=== PATIENT | female | born 1990 | race Caucasian/White ===

== ENCOUNTER 2017-01-29 11:48 | Inpatient (IN) | payer OTHER ==
[~2017-01-29] VITALS: Ht 167.6 cm; Wt 90.7 kg
[2017-01-29] MEDS ORDERED: NKM (11:57)
--- NOTE | 2017-01-29 12:33 | Emergency Room Report ---
History of Present Illness General Chief Complaint: General Complaint Source: Patient Present Illness HPI Patient presents with complaints of ongoing redness and discomfort to bilateral axilla, patient reports that she was seen previously however yesterday on antibiotics but did not improve any symptoms, patient also reports discomfort to bilateral inguinal region Denies any fevers or chills Patient has a mild fatigue denies any vomiting or diarrhea She feels areas have persisted and worsened and presents for further eval Allergies: Coded Allergies: No Known Allergies (Unverified , 01/29/17) Patient History Past Medical History: see triage record Pertinent Family History: none Now: No Reviewed Nursing Documentation: PMH: Agreed, PSxH: Agreed Nursing Documentation-PMH Hx Cardiac Problems: No - hidradenitis suppurativa Review of Systems All Other Systems: negative except mentioned in HPI Physical Exam Vital Signs Date Time Temp Pulse Resp B/P (MAP) Pulse Ox O2 Delivery O2 Flow Rate FiO2 01/29/17 11:52 97.9 74 20 116/76 99 Room Air Sp02 EP Interpretation: reviewed, normal General Appearance: well appearing, no apparent distress Head: normocephalic, atraumatic Eyes: bilateral eye PERRL, bilateral eye EOMI ENT: normal pharynx Neck: supple Respiratory: normal inspection, chest non-tender, lungs clear Cardiovascular #1: regular rate, rhythm, no edema Gastrointestinal: non tender, soft Genitourinary: no CVA tenderness Musculoskeletal: normal inspection Neurologic: alert, oriented x3, responsive Skin: other - Patient has extensive areas of what appear to be ingrown hair with increased erythema, bilateral axilla, there is also evidence bilateral inguinal region, no obvious streaking of erythema, however there is some fluctuance palpated Lymphatic: no adenopathy Medical Decision Making Diagnostic Impression: Primary Impression: Abscess Additional Impression: Cellulitis ER Course Given the patient's presentation and evaluation multiple differentials are considered The clinical exam reveals several areas of fluctuance as well At this time baseline blood work was initiated Given the appearance further antibiotic coverage has been there for 2 infectious disease specialty consultation patient does not appear acutely septic And will have close inpatient followup Labs Test 01/29/17 12:25 01/29/17 13:35 01/30/17 06:00 White Blood Count 8.0 K/UL (4.8-10.8) 8.1 K/UL (4.8-10.8) Red Blood Count 4.44 M/UL (4.20-5.40) 4.03 M/UL (4.20-5.40) Hemoglobin 9.0 G/DL (12.0-16.0) 8.5 G/DL (12.0-16.0) Hematocrit 31.0 % (37.0-47.0) 28.0 % (37.0-47.0) Mean Corpuscular Volume 70 FL (80-99) 70 FL (80-99) Mean Corpuscular Hemoglobin 20.4 PG (27.0-31.0) 21.0 PG (27.0-31.0) Mean Corpuscular Hemoglobin Concent 29.2 G/DL (32.0-36.0) 30.2 G/DL (32.0-36.0) Red Cell Distribution Width 21.6 % (11.6-14.8) 22.0 % (11.6-14.8) Platelet Count 231 K/UL (150-450) 208 K/UL (150-450) Mean Platelet Volume 10.4 FL (6.5-10.1) 8.2 FL (6.5-10.1) Neutrophils (%) (Auto) 64.6 % (45.0-75.0) 56.8 % (45.0-75.0) Lymphocytes (%) (Auto) 21.8 % (20.0-45.0) 29.7 % (20.0-45.0) Monocytes (%) (Auto) 8.3 % (1.0-10.0) 7.5 % (1.0-10.0) Eosinophils (%) (Auto) 3.9 % (0.0-3.0) 4.8 % (0.0-3.0) Basophils (%) (Auto) 1.5 % (0.0-2.0) 1.2 % (0.0-2.0) Prothrombin Time 9.9 SEC (9.30-11.50) Prothromb Time International Ratio 0.9 (0.9-1.1) Activated Partial Thromboplast Time 23 SEC (23-33) Sodium Level 140 mEQ/L (135-145) 142 mEQ/L (135-145) Potassium Level 3.4 mEQ/L (3.4-4.9) 4.0 mEQ/L (3.4-4.9) Chloride Level 104 mEQ/L (98-107) 107 mEQ/L (98-107) Carbon Dioxide Level 24 mEQ/L (20-30) 25 mEQ/L (20-30) Anion Gap 12 (5-15) 10 (5-15) Blood Urea Nitrogen 7 mg/dL (7-23) 7 mg/dL (7-23) Creatinine 0.7 mg/dL (0.5-0.9) 0.6 mg/dL (0.5-0.9) Estimat Glomerular Filtration Rate > 60 mL/min (>60) > 60 mL/min (>60) Glucose Level 33 mg/dL (74-106) 71 mg/dL (74-106) Lactic Acid Level 1.40 mmol/L (0.66-2.22) Calcium Level 9.2 mg/dL (8.6-10.2) 8.6 mg/dL (8.6-10.2) Total Bilirubin 0.3 mg/dL (0.0-1.2) Aspartate Amino Transf (AST/SGOT) 16 U/L (5-40) Alanine Aminotransferase (ALT/SGPT) 13 U/L (3-33) Alkaline Phosphatase 42 U/L (35-104) Total Creatine Kinase 44 U/L (26-140) Creatine Kinase MB < 1.5 ng/mL (< 3.8) Creatine Kinase MB Relative Index Total Protein 7.6 g/dL (6.6-8.7) Albumin 4.2 g/dL (3.5-5.2) Globulin 3.4 g/dL Albumin/Globulin Ratio 1.2 (1.0-2.7) Iron Level 18 ug/dL (37-145) Total Iron Binding Capacity 466 ug/dL (250-400) Percent Iron Saturation 4 % (15-50) Unsaturated Iron Binding 448 ug/dL (112-346) Ferritin 8 ng/mL (13-150) Rhythm Strip Diag. Results EP Interpretation: yes Rate: 77 Rhythm: NSR, no PVC's, no ectopy Last Vital Signs Date Time Temp Pulse Resp B/P (MAP) Pulse Ox O2 Delivery O2 Flow Rate FiO2 01/29/17 11:52 97.9 74 20 116/76 99 Room Air Status: improved Disposition: ADMITTED INPATIENT Condition: Serious Referrals: [facility]ERR[facility] (PCP) JULIEN KING D.O. Jan 29, 2017 12:33
[2017-01-29 12:42] LABS: BASOPHILS % (AUTO) 1.5 % (0.0-2.0); EOSINOPHILS % (AUTO) 3.9 % (0.0-3.0); LYMPHOCYTES % (AUTO) 21.8 % (20.0-45.0); MEAN CORPUSCULAR HEMOGLOBIN 20.4 PG (27.0-31.0); MEAN CORPUSCULAR HGB CONC 29.2 G/DL (32.0-36.0); MEAN CORPUSCULAR VOLUME 70 FL (80-99); MEAN PLATELET VOLUME 10.4 FL (6.5-10.1); MONOCYTES % (AUTO) 8.3 % (1.0-10.0); NEUTROPHILS % (AUTO) 64.6 % (45.0-75.0); PLATELET COUNT 231 K/UL (150-450); RED BLOOD COUNT 4.44 M/UL (4.20-5.40); RED CELL DISTRIBUTION WIDTH 21.6 % (11.6-14.8)
[2017-01-29 12:47] LABS: INR 0.9 (0.9-1.1); PROTHROMBIN TIME 9.9 SEC (9.30-11.50)
[2017-01-29 12:52] LABS: ALANINE AMINOTRANSFERASE 13 U/L (3-33); ALBUMIN/GLOBULIN RATIO 1.2 (1.0-2.7); ANION GAP 12 (5-15); ASPARTATE AMINO TRANSFERASE 16 U/L (5-40); CALCIUM 9.2 mg/dL (8.6-10.2); CARBON DIOXIDE 24 mEQ/L (20-30); CHLORIDE 104 mEQ/L (98-107); CREATININE 0.7 mg/dL (0.5-0.9); GLOMERULAR FILTRATION RATE > 60 mL/min (>60); HEMOLYSIS 1; POTASSIUM 3.4 mEQ/L (3.4-4.9); SODIUM 140 mEQ/L (135-145); TOTAL PROTEIN 7.6 g/dL (6.6-8.7)
[2017-01-29 13:24] LABS: CKMB < 1.5 ng/mL (< 3.8)
[2017-01-29 13:55] VITALS: BP 116/76
[2017-01-29 14:05] LABS: ANION GAP 10 (5-15); CALCIUM 8.6 mg/dL (8.6-10.2); CARBON DIOXIDE 25 mEQ/L (20-30); CHLORIDE 107 mEQ/L (98-107); CREATININE 0.6 mg/dL (0.5-0.9); GLOMERULAR FILTRATION RATE > 60 mL/min (>60); HEMOLYSIS 3; SODIUM 142 mEQ/L (135-145)
[2017-01-29 14:22] VITALS: BP 127/72
[2017-01-29] MEDS ORDERED: Miralax 17gm pkt ORAL PRN (14:45)
[2017-01-29] MEDS ORDERED: Morphine Sulfate 4mg/ml Inj IVP PRN (14:45)
[2017-01-29] MEDS ORDERED: Zolpidem 5mg tab ORAL PRN (14:45)
[2017-01-29] MEDS ORDERED: Milk of Magnesia 30ml Ud ORAL PRN (14:45)
[2017-01-29] MEDS ORDERED: Mylanta II UD 30ml ORAL PRN (14:45)
[2017-01-29] MEDS ORDERED: Morphine Sulfate 2mg/ml Inj IVP PRN (14:45)
[2017-01-29] MEDS: D5 1/2NS 1,000 ML IV SCH (15:45)
[2017-01-29 16:03] VITALS: BP 128/83
--- NOTE | 2017-01-29 16:42 | Diagnostic Imaging Report ---
Indication: Dyspnea Comparison: None A single view chest radiograph was obtained. Findings: Cardiomediastinal appearance is within normal limits for age. Pulmonary vascularity is appropriate. The diaphragmatic contour is smooth and costophrenic angles are sharp. No pleural effusions are identified. There is a scoliosis present convex to the right. Impression: No acute findings Scoliosis
--- NOTE | 2017-01-29 18:29 | History and Physical ---
History of Present Illness General Date patient seen: Jan 29, 2017 Time patient seen: 18:28 Reason for Hospitalization: b/l groin and axilla abscesses Present Illness HPI ongoing redness and discomfort to bilateral axilla, patient reports that she was seen previously however yesterday on antibiotics but did not improve any symptoms, patient also reports discomfort to bilateral inguinal region Denies any fevers or chills Patient has a mild fatigue denies any vomiting or diarrhea She feels areas have persisted and worsened and presents for further eval Allergies: Coded Allergies: No Known Allergies (Unverified , 01/29/17) Medication History Scheduled No Known Medications* (NKM - No Known Medications*), 0 ., (Reported) Patient History Healthcare decision maker Resuscitation status Full Code Advanced Directive on File Physical Exam Last 24 Hour Vital Signs Date Time Temp Pulse Resp B/P (MAP) Pulse Ox O2 Delivery O2 Flow Rate FiO2 01/29/17 16:03 98.4 79 20 128/83 100 Room Air 01/29/17 14:22 97.9 71 21 127/72 99 Room Air 01/29/17 13:55 97.9 20 116/76 99 Room Air 01/29/17 13:53 76 16 10/80 99 Room Air 01/29/17 11:52 97.9 74 20 116/76 99 Room Air Intake and Output 01/29/17 01/30/17 19:00 07:00 Intake Total 150 ml Balance 150 ml Intake Oral 0 ml IV Total 150 ml Laboratory Tests Test 01/29/17 12:25 01/29/17 13:35 White Blood Count 8.0 K/UL (4.8-10.8) Red Blood Count 4.44 M/UL (4.20-5.40) Hemoglobin 9.0 G/DL (12.0-16.0) L Hematocrit 31.0 % (37.0-47.0) L Mean Corpuscular Volume 70 FL (80-99) L Mean Corpuscular Hemoglobin 20.4 PG (27.0-31.0) L Mean Corpuscular Hemoglobin Concent 29.2 G/DL (32.0-36.0) L Red Cell Distribution Width 21.6 % (11.6-14.8) H Platelet Count 231 K/UL (150-450) Mean Platelet Volume 10.4 FL (6.5-10.1) H Neutrophils (%) (Auto) 64.6 % (45.0-75.0) Lymphocytes (%) (Auto) 21.8 % (20.0-45.0) Monocytes (%) (Auto) 8.3 % (1.0-10.0) Eosinophils (%) (Auto) 3.9 % (0.0-3.0) H Basophils (%) (Auto) 1.5 % (0.0-2.0) Prothrombin Time 9.9 SEC (9.30-11.50) Prothromb Time International Ratio 0.9 (0.9-1.1) Activated Partial Thromboplast Time 23 SEC (23-33) Sodium Level 140 mEQ/L (135-145) 142 mEQ/L (135-145) Potassium Level 3.4 mEQ/L (3.4-4.9) 4.0 mEQ/L (3.4-4.9) Chloride Level 104 mEQ/L (98-107) 107 mEQ/L (98-107) Carbon Dioxide Level 24 mEQ/L (20-30) 25 mEQ/L (20-30) Anion Gap 12 (5-15) 10 (5-15) Blood Urea Nitrogen 7 mg/dL (7-23) 7 mg/dL (7-23) Creatinine 0.7 mg/dL (0.5-0.9) 0.6 mg/dL (0.5-0.9) Estimat Glomerular Filtration Rate > 60 mL/min (>60) > 60 mL/min (>60) Glucose Level 33 mg/dL (74-106) *L 71 mg/dL (74-106) L Lactic Acid Level 1.40 mmol/L (0.66-2.22) Calcium Level 9.2 mg/dL (8.6-10.2) 8.6 mg/dL (8.6-10.2) Total Bilirubin 0.3 mg/dL (0.0-1.2) Aspartate Amino Transf (AST/SGOT) 16 U/L (5-40) Alanine Aminotransferase (ALT/SGPT) 13 U/L (3-33) Alkaline Phosphatase 42 U/L (35-104) Total Creatine Kinase 44 U/L (26-140) Creatine Kinase MB < 1.5 ng/mL (< 3.8) Creatine Kinase MB Relative Index Total Protein 7.6 g/dL (6.6-8.7) Albumin 4.2 g/dL (3.5-5.2) Globulin 3.4 g/dL Albumin/Globulin Ratio 1.2 (1.0-2.7) Height (Feet): 5 Height (Inches): 6.00 Weight (Pounds): 200 Medications Current Medications Medications (Trade) Dose Ordered Sig/Gonzales Route PRN Reason Start Time Stop Time Status Last Admin Dose Admin Acetaminophen (Tylenol) 650 mg Q4H PRN ORAL Mild Pain (Pain Scale 1-3) 01/29/17 14:45 02/28/17 14:44 Al Hydroxide/Mg Hydroxide (Mylanta II) 30 ml Q6H PRN ORAL dyspepsia 01/29/17 14:45 02/28/17 14:44 Dextrose (Dextrose 50%) STAT PRN IV Hypoglycemia 01/29/17 14:45 02/28/17 14:44 Dextrose/Sodium Chloride 1,000 ml @ 75 mls/hr [id number] IV 01/29/17 15:00 02/28/17 14:59 01/29/17 15:45 Diphenhydramine HCl (Benadryl) 25 mg Q6H PRN ORAL Itching/Pruritis 01/29/17 14:45 02/28/17 14:44 Docusate Sodium (Colace) 100 mg EVERY 12 HOURS ORAL 01/29/17 21:00 02/28/17 20:59 Magnesium Hydroxide (Mom) 30 ml HSPRN PRN ORAL Constipation 01/29/17 14:45 02/28/17 14:44 Morphine Sulfate (Morphine Sulfate) 2 mg Q4H PRN IVP Moderate Pain (Pain Scale 4-6) 01/29/17 14:45 02/05/17 14:44 Morphine Sulfate (Morphine Sulfate) 4 mg Q4H PRN IVP Severe Pain (Pain Scale 7-10) 01/29/17 14:45 02/05/17 14:44 Ondansetron HCl (Zofran) 4 mg Q6H PRN IVP Nausea & Vomiting 01/29/17 14:45 02/28/17 14:44 Polyethylene Glycol (Miralax) 17 gm HSPRN PRN ORAL Constipation 01/29/17 14:45 02/28/17 14:44 Zolpidem Tartrate (Ambien) 5 mg HSPRN PRN ORAL Insomnia 01/29/17 14:45 02/05/17 14:44 Assessment/Plan Problem List: (1) Abscess ICD Codes: L02.91 - Cutaneous abscess, unspecified SNOMED: 950643310 (2) Anemia ICD Codes: D64.9 - Anemia, unspecified SNOMED: 424287910 (3) Hidradenitis suppurativa ICD Codes: L73.2 - Hidradenitis suppurativa SNOMED: 67279875 Status: stable Assessment/Plan Admit in Plastic surgery consulted Check blood cultures x 2 Empiric ancef Check Fe panel, ferritin given microcytic anemia Trend CBC Type and screen Pain control, bowel regimen Supportive care If patient is required to have surgery, based on the patient's medical history, and other available ancillary data, the patient is a LOW risk for an INTERMEDIATE risk procedure. Per the most recent ACC/AHA guidelines, the patient does not need any further cardiopulmonary testing prior to the procedure and there do not appear to be any clear medical contraindications to proceeding with the proposed procedure. D/w pt, RN, surgery regarding mgmt and dispo Denis Griffin M.D. Jan 29, 2017 18:29
[2017-01-29 20:00] VITALS: BP 140/75
[2017-01-29] MEDS: Docusate 100mg cap ORAL SCH (20:29)
[2017-01-29 21:11] LABS: HEMOLYSIS 1; IRON 18 ug/dL (37-145); TOTAL IRON BINDING CAPACITY 466 ug/dL (250-400)
[2017-01-29 21:20] LABS: FERRITIN 8 ng/mL (13-150)
[2017-01-29] MEDS ORDERED: ceFAZolin 1gm in D5W 55ml IVPB ONE (23:00)
[2017-01-29] MEDS ORDERED: ceFAZolin 1gm/50ml Premix 50 ML IV ONE (23:00)
[2017-01-30] VITALS (15 sets, daily range): BP systolic 100–122; BP diastolic 40–69
[2017-01-30] MEDS: D5 1/2NS 1,000 ML IV SCH ×2 (04:02→18:30)
[2017-01-30 06:26] LABS: BASOPHILS % (AUTO) 1.2 % (0.0-2.0); EOSINOPHILS % (AUTO) 4.8 % (0.0-3.0); LYMPHOCYTES % (AUTO) 29.7 % (20.0-45.0); MEAN CORPUSCULAR HGB CONC 30.2 G/DL (32.0-36.0); MEAN CORPUSCULAR VOLUME 70 FL (80-99); MEAN PLATELET VOLUME 8.2 FL (6.5-10.1); MONOCYTES % (AUTO) 7.5 % (1.0-10.0); NEUTROPHILS % (AUTO) 56.8 % (45.0-75.0); PLATELET COUNT 208 K/UL (150-450); RED BLOOD COUNT 4.03 M/UL (4.20-5.40); WHITE BLOOD COUNT 8.1 K/UL (4.8-10.8)
[2017-01-30] MEDS: Docusate 100mg cap ORAL SCH ×2 (07:49→20:43)
[2017-01-30] MEDS ORDERED: Metoclopramide 10mg/2ml Inj IVP PRN ×2 (13:00→14:30)
[2017-01-30] MEDS ORDERED: Zolpidem 5mg tab ORAL PRN (13:00)
[2017-01-30] MEDS ORDERED: DiphenhydrAMINE 50mg/ml Inj IVP PRN ×2 (13:00→14:30)
--- NOTE | 2017-01-30 13:00 | Pre-Procedure Note/Attestation ---
Pre-Procedure Note/Attestation Complete Prior to Procedure Planned Procedure: bilateral Procedure Narrative: Bilateral groin tissue debridement and flap closure Attestation I attest that I discussed the nature of the procedure; its benefits; risks and complications; and alternatives (and the risks and benefits of such alternatives ), prior to the procedure, with the patient (or the patient's legal benefits representative). I attest that, if there was a reasonable possibility of needing a blood transfusion, the patient (or the patient's legal benefits representative) was given the [facility] standardized written summary, pursuant to the [place] Blood Safety Act ([place] Health and Safety Code # 1645, as amended). I attest that I re-evaluated the patient just prior to the surgery and that there has been no change in the patient's H&P, except as documented below: KASEY ESCOBAR Jan 30, 2017 13:00
[2017-01-30] MEDS ORDERED: NeoSporin Gu Irrig 1ml Amp IRRIG ONE (13:12)
[2017-01-30] MEDS ORDERED: Lidocaine 1% 10mg/ml/Epi 0.005mg/ml 30ml vial INJ ONE (13:12)
[2017-01-30] MEDS ORDERED: Bacitracin 50000 Units Vial ONE (13:12)
[2017-01-30] MEDS ORDERED: EPINEPHrine 1mg/1ml Amp ONE (13:12)
[2017-01-30] MEDS ORDERED: Propofol 200mg/20ml IV ONE (13:25)
--- NOTE | 2017-01-30 13:29 | General Progress Note ---
Assessment/Plan Problem List: (1) Abscess ICD Codes: L02.91 - Cutaneous abscess, unspecified SNOMED: 705346143 (2) Hidradenitis suppurativa ICD Codes: L73.2 - Hidradenitis suppurativa SNOMED: 57296939 (3) Acute blood loss anemia ICD Codes: D62 - Acute posthemorrhagic anemia SNOMED: 615488303 (4) Iron deficiency anemia ICD Codes: D50.9 - Iron deficiency anemia, unspecified SNOMED: 49543172 Status: stable Assessment/Plan Plastic surgery consulted Empiric ancef F/u blood cultures s/p radical excision of thigh tissue with flap closure on 01/31/16 Post operative recommendations include: - encourage mobilization/ambulation - encourage incentive spirometry to optimize pulmonary hygiene - DVT/GI prophylaxis as appropriate IV venofer started 01/29 for Fe def anemia Trend CBC Pain control, bowel regimen Supportive care A total of 32 min of extra time was spent in addition to normal encounter time for care/coordination and counseling. D/w pt, RN, surgery regarding mgmt and dispo Subjective Date patient seen: Jan 30, 2017 Time patient seen: 13:29 ROS Limited/Unobtainable: No Constitutional: Reports: no symptoms HEENT: Reports: no symptoms Cardiovascular: Reports: no symptoms Respiratory: Reports: no symptoms Gastrointestinal/Abdominal: Reports: no symptoms Genitourinary: Reports: no symptoms Neurologic/Psychiatric: Reports: no symptoms Endocrine: Reports: no symptoms Hematologic/Lymphatic: Reports: no symptoms Allergies: Coded Allergies: No Known Allergies (Unverified , 01/29/17) All Systems: reviewed and negative except above Subjective No acute o/n events s/p radical excision of thigh tissue with flap closure today Pain controlled. Denies f/c, n/v, d/c, chest pain, SOB Objective Last 24 Hour Vital Signs Date Time Temp Pulse Resp B/P (MAP) Pulse Ox O2 Delivery O2 Flow Rate FiO2 01/30/17 12:00 97.8 60 19 117/61 98 Room Air 01/30/17 08:00 98.0 71 19 116/60 96 Room Air 01/30/17 04:00 98.2 66 16 101/65 98 Room Air 01/30/17 00:00 97.9 61 18 100/69 99 Room Air 01/29/17 20:00 97.6 83 18 140/75 100 Room Air 01/29/17 16:03 98.4 79 20 128/83 100 Room Air 01/29/17 14:22 97.9 71 21 127/72 99 Room Air 01/29/17 13:55 97.9 20 116/76 99 Room Air 01/29/17 13:53 76 16 10/80 99 Room Air Laboratory Tests 01/29/17 13:35: Sodium Level 142, Potassium Level 4.0, Chloride Level 107, Carbon Dioxide Level 25, Anion Gap 10, Blood Urea Nitrogen 7, Creatinine 0.6, Estimat Glomerular Filtration Rate > 60, Glucose Level 71L, Calcium Level 8.6, Iron Level 18L, Total Iron Binding Capacity 466H, Percent Iron Saturation 4L, Unsaturated Iron Binding 448H, Ferritin 8L 01/30/17 06:00: White Blood Count 8.1, Red Blood Count 4.03L, Hemoglobin 8.5L, Hematocrit 28.0L , Mean Corpuscular Volume 70L, Mean Corpuscular Hemoglobin 21.0L, Mean Corpuscular Hemoglobin Concent 30.2L, Red Cell Distribution Width 22.0H, Platelet Count 208, Mean Platelet Volume 8.2, Neutrophils (%) (Auto) 56.8, Lymphocytes (%) (Auto) 29.7, Monocytes (%) (Auto) 7.5, Eosinophils (%) (Auto) 4.8H, Basophils (%) (Auto) 1.2 Height (Feet): 5 Height (Inches): 6.00 Weight (Pounds): 200 Objective General: alert, cooperative, no distress, appears stated age Head: normocephalic, without obvious abnormality, atraumatic Eyes: conjunctivae/corneas clear. PERRL, EOM's intact Throat: lips, mucosa, and tongue normal. MMM Neck: supple, symmetrical, trachea midline, and no JVD Lungs: clear to auscultation bilaterally Heart: regular rate and rhythm, S1, S2 normal, no murmur, click, rub or gallop Abdomen: soft, non-tender, non-distended, bowel sounds normal; no masses or organomegaly Extremities: extremities normal, atraumatic, no cyanosis or edema Pulses: 2+ and symmetric Skin: skin color, texture, turgor normal; no rashes or lesions Neurologic: grossly normal, no focal deficits Denis Griffin M.D. Jan 30, 2017 13:29
[2017-01-30] MEDS ORDERED: LR 1000ml ONE (13:30)
[2017-01-30] MEDS ORDERED: Midazolam 2mg/2ml Inj ONE (13:30)
[2017-01-30] MEDS ORDERED: Neostigmine 1mg/ml 10ml Inj ONE (13:30)
[2017-01-30] MEDS ORDERED: NS Irrig 1000ml ONE (13:30)
[2017-01-30] MEDS ORDERED: Glycopyrrolate 0.2mg/ml 1ml Vial ONE (13:30)
[2017-01-30] MEDS ORDERED: Zemuron 50mg/5ml Inj IV ONE (13:30)
[2017-01-30] MEDS ORDERED: fentaNYL 100 mcg/2 mL IV ONE (13:30)
[2017-01-30] MEDS ORDERED: Ketorolac 30mg Inj ONE (13:30)
[2017-01-30] MEDS ORDERED: Succinylcholine 20mg/ml 10ml vial ONE (13:30)
[2017-01-30] MEDS ORDERED: Sterile Water Irrig 1000ml IRRIG ONE (13:30)
[2017-01-30] MEDS ORDERED: Morphine Sulfate 10mg/ml Inj ONE (13:30)
[2017-01-30] MEDS ORDERED: LR 1000ml 1,000 ML IVLG SCH (14:28)
--- NOTE | 2017-01-30 14:28 | Anethesia Preoperative Eval ---
Anesthesia Pre-op PMH/ROS General Date of Evaluation: Jan 30, 2017 Time of Evaluation: 13:25 Anesthesiologist: Sandeep ASA Score: ASA 2 Mallampati Score Class I : Soft palate, uvula, fauces, pillars visible Class II: Soft palate, uvula, fauces visible Class III: Soft palate, base of uvula visible Class IV: Only hard plate visible Mallampati Classification: Class II Surgeon: Darrin Diagnosis: Bilateral groin HS Surgical Procedure: Excision and closure of bilateral groin HS Anesthesia History: none Family History: no anesthesia problems Allergies: Coded Allergies: No Known Allergies (Unverified , 01/29/17) Medications: see eMAR Past Medical History Cardiovascular: Denies: HTN, CAD, [place], valve dz, arrhythmia, other Pulmonary: Denies: asthma, COPD, THONY, other Gastrointestinal/Genitourinary: Reports: GERD, Denies: CRI, ESRD, other Neurologic/Psychiatric: Reports: depression/anxiety, Denies: dementia, CVA, TIA, other Endocrine: Denies: DM, hypothyroidism, steroids, other HEENT: Denies: cataract (L), cataract (R), glaucoma, [place] (L), [place] (R), other Hematology/Immune: Reports: anemia - mild, Denies: DVT, bleeding disorder, other Musculoskeletal/Integumentary: Denies: OA, RA, DJD, DDD, edema, other Other: obesity - s/p gastric bypass weight loss> 100# PMH Narrative: as above PSxH Narrative: Gastric bypass, hernia repair Anesthesia Pre-op Phys. Exam Physician Exam Last Vital Signs Date Time Temp Pulse Resp B/P (MAP) Pulse Ox O2 Delivery O2 Flow Rate FiO2 01/30/17 12:00 97.8 60 19 117/61 98 Room Air Constitutional: NAD Neurologic: CN 2-12 intact Cardiovascular: RRR, no M/R/G Respiratory: CTA Gastrointestinal: S/NT/ND Airway Exam Mallampati Score: Class II MO: full Neck: flexible ROM: full Teeth: intact Dentures: no upper, no lower Anesthesia Pre-op A/P Labs Hematology Test 01/30/17 06:00 White Blood Count 8.1 K/UL (4.8-10.8) Red Blood Count 4.03 M/UL (4.20-5.40) L Hemoglobin 8.5 G/DL (12.0-16.0) L Hematocrit 28.0 % (37.0-47.0) L Mean Corpuscular Volume 70 FL (80-99) L Mean Corpuscular Hemoglobin 21.0 PG (27.0-31.0) L Mean Corpuscular Hemoglobin Concent 30.2 G/DL (32.0-36.0) L Red Cell Distribution Width 22.0 % (11.6-14.8) H Platelet Count 208 K/UL (150-450) Mean Platelet Volume 8.2 FL (6.5-10.1) Neutrophils (%) (Auto) 56.8 % (45.0-75.0) Lymphocytes (%) (Auto) 29.7 % (20.0-45.0) Monocytes (%) (Auto) 7.5 % (1.0-10.0) Eosinophils (%) (Auto) 4.8 % (0.0-3.0) H Basophils (%) (Auto) 1.2 % (0.0-2.0) Studies Pre-op Studies: EKG - NSR Risk Assessment & Plan Assessment: ASA 2 Plan: GA with ETT Status Change Before Surgery: No Pre-Antibiotics Drug: Ancef 1 gr. Given Within 1 Hr of Incision: Yes Time Given: 14:16 ROSA NAQVI M.D. Jan 30, 2017 14:28
[2017-01-30] MEDS ORDERED: Midazolam 2mg/2ml Inj IVP PRN (14:30)
[2017-01-30] MEDS ORDERED: Meperidine 25mg/0.5ml Inj (FOR RIGORS ONLY) IV PRN (14:30)
[2017-01-30] MEDS ORDERED: Ketorolac 30mg Inj IV PRN (14:30)
[2017-01-30] MEDS ORDERED: Hydromorphone 0.5mg/0.5ml inj IVP PRN (14:30)
--- NOTE | 2017-01-30 14:46 | Cardiology Report ---
APPROVED REPORT EKG Measurement Heart [id number] Normal sinus rhythm with sinus arrhythmia Normal ECG
--- NOTE | 2017-01-30 15:58 | Operative Note - PDOC ---
Operative Note Operative Note Procedure: Radical excision of thigh tissue with flap closure Surgeon: Darrin Elevator Repairer Helper: Estelita Anesthesia: general Specimen: yes Complications: none Condition: stable Estimated Blood Loss: none Drains: ADITHYA Implant(s) used?: No KASEY ESCOBAR Jan 30, 2017 15:58
[2017-01-30] MEDS: PCA HYDROmorphone 1mg/ml 30 ML IV PRN (16:37)
[2017-01-30] MEDS ORDERED: PCA Education Pamphlet MISC ONE (16:45)
[2017-01-30] MEDS ORDERED: Rate Change PCA 1 Each MISC PRN (16:45)
--- NOTE | 2017-01-30 17:20 | Immediate Post-Op Evaluation ---
Immediate Post-Op Evalulation Immediate Post-Op Evalulation Procedure: Excision and closure of bilateral groin HS Date of Evaluation: Jan 30, 2017 Time of Evaluation: 16:10 IV Fluids: 1400 Blood Products: none Estimated Blood Loss: 50 Urinary Output: 500 Blood Pressure Systolic: 116 Blood Pressure Diastolic: 62 Pulse Rate: 68 Respiratory Rate: 20 O2 Sat by Pulse Oximetry: 99 Temperature (Fahrenheit): 97.6 Pain Score (1-10): 2 Nausea: No Vomiting: No Complications none Patient Status: reacts, patent, extubated, none Hydration Status: adequate ROSA NAQVI M.D. Jan 30, 2017 17:20
[2017-01-30] MEDS: PCA shift volume MISC SCH (19:18)
[2017-01-30] MEDS: Iron Sucrose 100 MG in NS 55 ML IV SCH ×3 (20:42)
[2017-01-30] MEDS: Heparin 5000 units/ml inj SUBQ SCH (20:45)
--- NOTE | 2017-01-30 21:46 | Consultation ---
DATE OF CONSULTATION: 01/30/2017 Reason For Consultation: Bilateral axillary and bilateral groin infected tissues. History Of Present Illness: This is a 26-year-old female, who presented to the emergency room with pain associated with areas of infection in her bilateral groin and axillary tissues. She was admitted by the medical team. I saw the patient on evaluation for radical excision of these areas with reconstruction. Past Medical History: Significant for morbid obesity, status post gastric bypass as well as hidradenitis. PAST SURGICAL HISTORY: Includes weight loss surgery. Medications: Include previously she is on antibiotics. Medications currently none. ALLERGIES: None. PHYSICAL EXAMINATION: GENERAL: The patient is alert and oriented x3. HEART: Regular rhythm. ABDOMEN: Soft, nontender, and nondistended. Extremities: Examination of the axilla reveals areas of chronic scarring and old abscesses with similar evidence of disease in her bilateral groin and thigh regions extending down to the mid thigh. Assessment And Plan: This is a 26-year-old female, who will require radical excision and reconstruction of her groin as well as axillary regions. This will be performed in the sequence first performing the thigh reconstruction followed by the axillary reconstruction of the second operation. Familia Clifford M.D. DR: Yarely JOB#: [id number] CC:
[2017-01-30] MEDS: ceFAZolin sod 1 GM in D5W 55 ML IVPB SCH (21:49)
--- NOTE | 2017-01-30 22:01 | Operative Note - Dictated ---
DATE OF OPERATION: 01/30/2017 PREOPERATIVE DIAGNOSIS: Bilateral infected groin and thigh tissue. POSTOPERATIVE DIAGNOSIS: Bilateral infected groin and thigh tissue. PROCEDURES: 1. Radical excision of left groin tissue. 2. Radical excision of right groin and thigh tissue. 3. Elevation of a posterior thigh flap for closure of right groin wound. 4. Elevation of anterior thigh flap for closure of left groin wound. 5. Elevation of a posterior thigh flap for closure of right groin wound. 6. Elevation of anterior thigh flap for closure of right groin wound. SURGEON: Familia Clifford M.D. ANESTHESIA: General. COMPLICATIONS: None. DRAINS: Included one ADITHYA in each wound. SPECIMEN: Included bilateral thigh tissue. DISPOSITION: Stable to the recovery room. Indications For Surgery: This is a 26-year-old female admitted for bilateral infected thigh tissue. She was admitted by the medical team to the emergency room and was on IV antibiotics and upon evaluation by me, I felt that she was an appropriate candidate for radical excision of these infected tissues followed by reconstruction with flaps. She understood the risks and benefits of surgery and agreed to proceed. Details Of The Operation: The patient was brought to the operating room and laid in the lithotomy position on the operating room table. Her bilateral thigh tissues were prepped and draped in a sterile and usual fashion. We began by using a marking pen to delineate the margins of excision of the radical excision. A #10 blade was then used to make the incision all around the marking and the specimen was radically excised all the way down to the level of the adductor fascia. This then resulted in a defect that measured 20 x 15 cm and was clearly not amenable to primary closure. As such, an anterior thigh flap based off of perforators of the superficial femoral artery was elevated with proximal and distal incisions made to fully mobilize the flap. The flap was elevated at the fasciocutaneous level and this was noted to be still insufficient for closure. As such, a posterior thigh flap based off of perforators of the femoral artery were elevated just over the level of the hamstring muscles with the proximal and distal incisions made to fully mobilize the flap as well. Once this was done, it was evident that the wound could be closed by reapproximation of the flaps. The wound was then copiously irrigated with pulse lavage. Hemostasis was achieved. A ADITHYA drain size 15 was placed and this was secured with nylon sutures and the two flaps were then brought together and inset using #0 and 2-0 Vicryl sutures and a running 3-0 Prolene was used to close the skin. This was then further reinforced with a 2-0 Prolene and Dermabond. We then turned our attention to the contralateral leg. In a similar fashion, the markings were made and a #10 blade was used to make the skin incision to radically excise it along with electrocautery all the way down to the level of the adductor fascia resulting in a defect that measured 23 x 18 cm. This was also not amenable to primary closure and in a similar fashion, an anterior thigh flap based off of perforators of the superficial femoral artery was elevated with the proximal and distal incisions made to fully mobilize the flap at the fasciocutaneous level and a posterior thigh flap was elevated just off of the hamstring fascia with proximal and distal incisions made to fully mobilize this flap and it was noted that at this point, the flaps were brought together without tension. Hemostasis was achieved. After irrigation of the wound, a ADITHYA drain was placed size 15. This was secured in place with a nylon stitch and the two flaps were brought together using #0 and 2-0 Vicryl sutures and a running 3-0 Prolene baseball stitch was used to close the skin reinforced with 2-0 Prolene and Dermabond. Compressive dressings were applied. The patient tolerated the procedure well. There were no complications. Familia Clifford M.D. DR: CRISTINO JOB#: [id number] CC:
[2017-01-31] VITALS: BP 105/56
[2017-01-31 04:00] VITALS: BP 108/58
[2017-01-31] MEDS: ceFAZolin sod 1 GM in D5W 55 ML IVPB SCH ×3 (05:35→22:15)
[2017-01-31] MEDS: D5 1/2NS 1,000 ML IV SCH ×2 (05:39→20:47)
[2017-01-31 07:11] LABS: BASOPHILS % (AUTO) 0.7 % (0.0-2.0); EOSINOPHILS % (AUTO) 1.6 % (0.0-3.0); LYMPHOCYTES % (AUTO) 11.3 % (20.0-45.0); MEAN CORPUSCULAR HGB CONC 29.7 G/DL (32.0-36.0); MEAN CORPUSCULAR VOLUME 70 FL (80-99); MEAN PLATELET VOLUME 10.7 FL (6.5-10.1); MONOCYTES % (AUTO) 6.1 % (1.0-10.0); NEUTROPHILS % (AUTO) 80.3 % (45.0-75.0); PLATELET COUNT 208 K/UL (150-450); RED BLOOD COUNT 3.87 M/UL (4.20-5.40); RED CELL DISTRIBUTION WIDTH 22.6 % (11.6-14.8); WHITE BLOOD COUNT 10.9 K/UL (4.8-10.8)
[2017-01-31] MEDS: PCA shift volume MISC SCH ×2 (07:26→19:10)
[2017-01-31 07:35] LABS: ANION GAP 9 (5-15); CALCIUM 8.4 mg/dL (8.6-10.2); CARBON DIOXIDE 26 mEQ/L (20-30); CHLORIDE 101 mEQ/L (98-107); CREATININE 0.5 mg/dL (0.5-0.9); GLOMERULAR FILTRATION RATE > 60 mL/min (>60); HEMOLYSIS 0; POTASSIUM 3.8 mEQ/L (3.4-4.9); SODIUM 136 mEQ/L (135-145)
[2017-01-31 08:22] VITALS: BP 105/54
[2017-01-31] MEDS: Docusate 100mg cap ORAL SCH ×2 (08:47→20:47)
[2017-01-31] MEDS: Heparin 5000 units/ml inj SUBQ SCH ×2 (08:52→20:51)
--- NOTE | 2017-01-31 11:06 | General Progress Note ---
Progress Note Progress Note Pt seen and examined. POD # 1 from closure of groin wounds. Doing well. AVSS Needs cavanaugh to prevent wound contamination. Plan for OR in AM for axillary reconstruction. MD SHAWN Babb AMIR Jan 31, 2017 11:06
[2017-01-31 11:29] VITALS: BP 110/65
--- NOTE | 2017-01-31 14:45 | General Progress Note ---
Assessment/Plan Problem List: (1) Abscess ICD Codes: L02.91 - Cutaneous abscess, unspecified SNOMED: 171806035 (2) Hidradenitis suppurativa ICD Codes: L73.2 - Hidradenitis suppurativa SNOMED: 93455379 (3) Acute blood loss anemia ICD Codes: D62 - Acute posthemorrhagic anemia SNOMED: 104722986 (4) Iron deficiency anemia ICD Codes: D50.9 - Iron deficiency anemia, unspecified SNOMED: 93819473 Status: stable Assessment/Plan Plastic surgery consulted Empiric ancef F/u blood cultures s/p radical excision of thigh tissue with flap closure on 01/31/16 Post operative recommendations include: - encourage mobilization/ambulation - encourage incentive spirometry to optimize pulmonary hygiene - DVT/GI prophylaxis as appropriate--SCD, HSQ IV venofer x 10 doses for Fe def anemia Trend CBC Pain control, bowel regimen Supportive care A total of 31 min of extra time was spent in addition to normal encounter time for care/coordination and counseling. D/w pt, RN, surgery regarding mgmt and dispo Subjective Date patient seen: Jan 30, 2017 Time patient seen: 14:00 ROS Limited/Unobtainable: No Constitutional: Reports: no symptoms HEENT: Reports: no symptoms Cardiovascular: Reports: no symptoms Respiratory: Reports: no symptoms Gastrointestinal/Abdominal: Reports: no symptoms Genitourinary: Reports: no symptoms Neurologic/Psychiatric: Reports: no symptoms Endocrine: Reports: no symptoms Hematologic/Lymphatic: Reports: no symptoms Allergies: Coded Allergies: No Known Allergies (Unverified , 01/29/17) All Systems: reviewed and negative except above Subjective No acute o/n events s/p radical excision of thigh tissue with flap closure yesterday POD#1 Pain controlled. Denies f/c, n/v, d/c, chest pain, SOB Objective Last 24 Hour Vital Signs Date Time Temp Pulse Resp B/P (MAP) Pulse Ox O2 Delivery O2 Flow Rate FiO2 01/31/17 13:54 97.8 01/31/17 12:00 20 01/31/17 11:29 97.8 81 20 110/65 99 Room Air 01/31/17 08:22 98.6 66 20 105/54 94 Room Air 01/31/17 08:00 18 01/31/17 04:00 18 01/31/17 04:00 97.4 64 18 108/58 97 Nasal Cannula 2.0 01/31/17 00:00 97.8 55 16 105/56 97 Nasal Cannula 2.0 01/31/17 00:00 19 01/30/17 20:00 97.8 61 18 111/68 99 Nasal Cannula 2.0 01/30/17 20:00 18 01/30/17 19:58 Nasal Cannula 2.0 28 01/30/17 19:58 99 Nasal Cannula 2.0 28 01/30/17 18:30 98.1 57 19 112/68 100 Nasal Cannula 3.0 01/30/17 18:15 19 01/30/17 18:00 97.8 55 19 101/54 98 Nasal Cannula 3.0 01/30/17 17:45 19 01/30/17 17:30 97.7 54 19 103/58 96 Nasal Cannula 3.0 01/30/17 17:20 68 20 99 01/30/17 17:15 14 01/30/17 17:00 13 01/30/17 17:00 97.6 01/30/17 17:00 97.6 01/30/17 17:00 98.8 55 13 104/61 99 Nasal Cannula 3.0 01/30/17 16:47 60 14 106/60 99 Nasal Cannula 3.0 01/30/17 16:45 14 01/30/17 16:40 55 14 120/40 100 Nasal Cannula 3.0 01/30/17 16:37 14 01/30/17 16:25 57 15 109/61 100 Nasal Cannula 3.0 01/30/17 16:15 57 15 112/63 100 Simple Mask 6.0 01/30/17 16:10 61 21 122/60 100 Simple Mask 6.0 01/30/17 16:05 98.6 55 14 113/57 100 Simple Mask 6.0 Intake and Output 01/31/17 02/01/17 19:00 07:00 Intake Total 1045 ml Output Total 800 ml Balance 245 ml Intake Oral 520 ml IV Total 525 ml Output Urine Total 800 ml # Voids 1 Laboratory Tests 01/31/17 06:00: White Blood Count 10.9H, Red Blood Count 3.87L, Hemoglobin 8.1L, Hematocrit 27.3L, Mean Corpuscular Volume 70L, Mean Corpuscular Hemoglobin 21.0L, Mean Corpuscular Hemoglobin Concent 29.7L, Red Cell Distribution Width 22.6H, Platelet Count 208, Mean Platelet Volume 10.7H, Neutrophils (%) (Auto) 80.3H, Lymphocytes (%) (Auto) 11.3L, Monocytes (%) (Auto) 6.1, Eosinophils (%) (Auto) 1.6, Basophils (%) (Auto) 0.7, Sodium Level 136, Potassium Level 3.8, Chloride Level 101, Carbon Dioxide Level 26, Anion Gap 9, Blood Urea Nitrogen 5L, Creatinine 0.5, Estimat Glomerular Filtration Rate > 60, Glucose Level 88, Calcium Level 8.4L Height (Feet): 5 Height (Inches): 6.00 Weight (Pounds): 200 Objective General: alert, cooperative, no distress, appears stated age Head: normocephalic, without obvious abnormality, atraumatic Eyes: conjunctivae/corneas clear. PERRL, EOM's intact Throat: lips, mucosa, and tongue normal. MMM Neck: supple, symmetrical, trachea midline, and no JVD Lungs: clear to auscultation bilaterally Heart: regular rate and rhythm, S1, S2 normal, no murmur, click, rub or gallop Abdomen: soft, non-tender, non-distended, bowel sounds normal; no masses or organomegaly Extremities: extremities normal, atraumatic, no cyanosis or edema Pulses: 2+ and symmetric Skin: skin color, texture, turgor normal; no rashes or lesions Neurologic: grossly normal, no focal deficits Denis Griffin M.D. Jan 31, 2017 14:45
[2017-01-31 16:21] VITALS: BP 111/57
[2017-01-31] MEDS: PCA HYDROmorphone 1mg/ml 30 ML IV PRN (17:20)
[2017-01-31 20:11] VITALS: BP 111/63
[2017-01-31] MEDS: Iron Sucrose 100 MG in NS 55 ML IV SCH (20:47)
[2017-02-01] VITALS (14 sets, daily range): BP systolic 110–136; BP diastolic 50–69
[2017-02-01] MEDS: ceFAZolin sod 1 GM in D5W 55 ML IVPB SCH ×3 (05:23→22:02)
[2017-02-01 06:54] LABS: BASOPHILS % (AUTO) 0.8 % (0.0-2.0); EOSINOPHILS % (AUTO) 1.7 % (0.0-3.0); LYMPHOCYTES % (AUTO) 13.8 % (20.0-45.0); MEAN CORPUSCULAR HEMOGLOBIN 21.3 PG (27.0-31.0); MEAN CORPUSCULAR HGB CONC 30.3 G/DL (32.0-36.0); MEAN CORPUSCULAR VOLUME 70 FL (80-99); MEAN PLATELET VOLUME 9.3 FL (6.5-10.1); MONOCYTES % (AUTO) 8.4 % (1.0-10.0); NEUTROPHILS % (AUTO) 75.3 % (45.0-75.0); PLATELET COUNT 219 K/UL (150-450); RED BLOOD COUNT 3.95 M/UL (4.20-5.40); RED CELL DISTRIBUTION WIDTH 22.4 % (11.6-14.8); WHITE BLOOD COUNT 9.5 K/UL (4.8-10.8)
[2017-02-01] MEDS: PCA shift volume MISC SCH ×2 (07:00→19:16)
--- NOTE | 2017-02-01 08:17 | Pre-Procedure Note/Attestation ---
Pre-Procedure Note/Attestation Complete Prior to Procedure Planned Procedure: bilateral Procedure Narrative: Bilateral axillary tissue excision with flap closure Attestation I attest that I discussed the nature of the procedure; its benefits; risks and complications; and alternatives (and the risks and benefits of such alternatives ), prior to the procedure, with the patient (or the patient's legal delivery representative). I attest that, if there was a reasonable possibility of needing a blood transfusion, the patient (or the patient's legal delivery representative) was given the [facility] standardized written summary, pursuant to the [place] Blood Safety Act ([place] Health and Safety Code # 1645, as amended). I attest that I re-evaluated the patient just prior to the surgery and that there has been no change in the patient's H&P, except as documented below: KASEY ESCOBAR Feb 01, 2017 08:17
[2017-02-01] MEDS ORDERED: PCA HYDROmorphone 1mg/ml 30 ML IV PRN (08:30)
[2017-02-01] MEDS ORDERED: Rate Change PCA 1 Each MISC PRN ×2 (08:30→12:00)
[2017-02-01] MEDS ORDERED: PCA Education Pamphlet MISC ONE ×2 (08:30→10:15)
[2017-02-01] MEDS ORDERED: Bacitracin 50000 Units Vial ONE (08:31)
[2017-02-01] MEDS ORDERED: NeoSporin Gu Irrig 1ml Amp IRRIG ONE (08:31)
[2017-02-01] MEDS ORDERED: Lidocaine 1% 10mg/ml/Epi 0.005mg/ml 30ml vial INJ ONE (08:31)
[2017-02-01] MEDS ORDERED: Morphine Sulfate 10mg/ml Inj ONE (09:00)
[2017-02-01] MEDS ORDERED: Propofol 200mg/20ml IV ONE (09:00)
[2017-02-01] MEDS ORDERED: LR 1000ml ONE (09:00)
[2017-02-01] MEDS ORDERED: Lidocaine 1% MPF 10mg/ml 5ml ONE (09:00)
[2017-02-01] MEDS: Heparin 5000 units/ml inj SUBQ SCH ×2 (09:00→20:34)
[2017-02-01] MEDS ORDERED: Ketorolac 30mg Inj ONE (09:00)
[2017-02-01] MEDS ORDERED: Midazolam 2mg/2ml Inj ONE (09:00)
[2017-02-01] MEDS ORDERED: fentaNYL 100 mcg/2 mL IV ONE (09:00)
[2017-02-01] MEDS: Docusate 100mg cap ORAL SCH ×2 (09:00→17:07)
[2017-02-01] MEDS ORDERED: Sterile Water Irrig 1000ml IRRIG ONE (09:00)
[2017-02-01] MEDS ORDERED: NS Irrig 1000ml ONE (09:00)
[2017-02-01] MEDS: D5 1/2NS 1,000 ML IV SCH ×2 (09:13→23:00)
[2017-02-01] MEDS ORDERED: Surgicel 4in x 8in TOPIC ONE (09:29)
--- NOTE | 2017-02-01 09:47 | 48 Hour Post Anesthesia Eval ---
Post Anesthesia Evaluation Procedure: Excision and closure of bilateral groin HS Date of Evaluation: Jan 31, 2017 Time of Evaluation: 11:32 Blood Pressure Systolic: 116 0: 62 Pulse Rate: 74 Respiratory Rate: 20 Temperature (Fahrenheit): 97.6 O2 Sat by Pulse Oximetry: 98 Airway: patent Nausea: No Vomiting: No Pain Intensity: 3 Hydration Status: adequate Cardiopulmonary Status: stable Mental Status/LOC: patient returned to baseline Follow-up Care/Observations: n/a Post-Anesthesia Complications: none Follow-up care needed: N/A ROSA NAQVI M.D. Feb 01, 2017 09:47
--- NOTE | 2017-02-01 09:53 | Anethesia Preoperative Eval ---
Anesthesia Pre-op PMH/ROS General Date of Evaluation: Feb 01, 2017 Time of Evaluation: 08:52 Anesthesiologist: Sandeep ASA Score: ASA 2 Mallampati Score Class I : Soft palate, uvula, fauces, pillars visible Class II: Soft palate, uvula, fauces visible Class III: Soft palate, base of uvula visible Class IV: Only hard plate visible Mallampati Classification: Class II Surgeon: Darrin Diagnosis: Recurent HS Surgical Procedure: Excision and closure of bilateral axillary HS Anesthesia History: none Family History: no anesthesia problems Allergies: Coded Allergies: No Known Allergies (Unverified , 01/29/17) Medications: see eMAR Past Medical History Cardiovascular: Denies: HTN, CAD, DE, valve dz, arrhythmia, other Pulmonary: Denies: asthma, COPD, THONY, other Gastrointestinal/Genitourinary: Reports: GERD, Denies: CRI, ESRD, other Neurologic/Psychiatric: Reports: depression/anxiety, Denies: dementia, CVA, TIA, other Endocrine: Denies: DM, hypothyroidism, steroids, other HEENT: Denies: cataract (L), cataract (R), glaucoma, LUMMI (L), LUMMI (R), other Hematology/Immune: Reports: anemia, Denies: DVT, bleeding disorder, other Musculoskeletal/Integumentary: Reports: other - Recurrent HS Other: obesity - s/p gastric bypass PMH Narrative: as above PSxH Narrative: see H&P Anesthesia Pre-op Phys. Exam Physician Exam Last Vital Signs Date Time Temp Pulse Resp B/P (MAP) Pulse Ox O2 Delivery O2 Flow Rate FiO2 02/01/17 08:00 99.2 75 17 110/58 96 Room Air 01/31/17 04:00 2.0 01/30/17 19:58 28 Constitutional: NAD Neurologic: CN 2-12 intact Cardiovascular: RRR, no M/R/G Respiratory: CTA Gastrointestinal: S/NT/ND Airway Exam Mallampati Score: Class II MO: full Neck: flexible ROM: full Teeth: intact Dentures: no upper, no lower Anesthesia Pre-op A/P Labs Hematology Test 02/01/17 05:20 White Blood Count 9.5 K/UL (4.8-10.8) Red Blood Count 3.95 M/UL (4.20-5.40) L Hemoglobin 8.4 G/DL (12.0-16.0) L Hematocrit 27.7 % (37.0-47.0) L Mean Corpuscular Volume 70 FL (80-99) L Mean Corpuscular Hemoglobin 21.3 PG (27.0-31.0) L Mean Corpuscular Hemoglobin Concent 30.3 G/DL (32.0-36.0) L Red Cell Distribution Width 22.4 % (11.6-14.8) H Platelet Count 219 K/UL (150-450) Mean Platelet Volume 9.3 FL (6.5-10.1) Neutrophils (%) (Auto) 75.3 % (45.0-75.0) H Lymphocytes (%) (Auto) 13.8 % (20.0-45.0) L Monocytes (%) (Auto) 8.4 % (1.0-10.0) Eosinophils (%) (Auto) 1.7 % (0.0-3.0) Basophils (%) (Auto) 0.8 % (0.0-2.0) Risk Assessment & Plan Assessment: ASA 2 Plan: GA with LMA PONV prevention Status Change Before Surgery: No Pre-Antibiotics Drug: Ancef 1gr. Given Within 1 Hr of Incision: Yes Time Given: 09:35 ROSA NAQVI M.D. Feb 01, 2017 09:53
[2017-02-01] MEDS ORDERED: Metoclopramide 10mg/2ml Inj IVP PRN (10:00)
[2017-02-01] MEDS ORDERED: Midazolam 2mg/2ml Inj IVP PRN (10:00)
[2017-02-01] MEDS ORDERED: Meperidine 25mg/0.5ml Inj (FOR RIGORS ONLY) IV PRN (10:00)
[2017-02-01] MEDS ORDERED: Hydromorphone 0.5mg/0.5ml inj IVP PRN (10:00)
[2017-02-01] MEDS ORDERED: DiphenhydrAMINE 50mg/ml Inj IVP PRN ×2 (10:00→12:00)
[2017-02-01] MEDS ORDERED: Ketorolac 30mg Inj IV PRN (10:00)
--- NOTE | 2017-02-01 11:01 | Operative Note - PDOC ---
Operative Note Operative Note Pre-op Diagnosis: Bilateral axillary tissue infection Procedure: Radical excision of bilateral axillary tissue with flap reconstruction- Post-op Diagnosis: same as pre-op Surgeon: Darrin Art Director: Mp Anesthesia: general Specimen: yes Complications: none Condition: stable Estimated Blood Loss: minimal Drains: ADITHYA Implant(s) used?: No KASEY ESCOBAR Feb 01, 2017 11:01
--- NOTE | 2017-02-01 11:16 | Immediate Post-Op Evaluation ---
Immediate Post-Op Evalulation Immediate Post-Op Evalulation Procedure: excision and closure of bilateral axillary wounds Date of Evaluation: Feb 01, 2017 Time of Evaluation: 11:14 IV Fluids: 1200 Blood Products: none Estimated Blood Loss: 50 Urinary Output: 500 Blood Pressure Systolic: 125 Blood Pressure Diastolic: 80 Pulse Rate: 79 Respiratory Rate: 20 O2 Sat by Pulse Oximetry: 99 Temperature (Fahrenheit): 97.4 Pain Score (1-10): 2 Nausea: No Vomiting: No Complications none Patient Status: awake, patent, none Hydration Status: adequate ROSA NAQVI M.D. Feb 01, 2017 11:16
[2017-02-01] MEDS ORDERED: LR 1000ml 1,000 ML IVLG SCH (11:30)
[2017-02-01] MEDS ORDERED: LORazepam 1mg tab ORAL PRN (12:00)
[2017-02-01] MEDS ORDERED: Naloxone 0.4mg/ml Inj IVP PRN (12:00)
[2017-02-01] MEDS: PCA HYDROmorphone 1mg/ml 30 ML IV PRN (12:06)
--- NOTE | 2017-02-01 14:43 | General Progress Note ---
Assessment/Plan Problem List: (1) Abscess ICD Codes: L02.91 - Cutaneous abscess, unspecified SNOMED: 840869416 (2) Hidradenitis suppurativa ICD Codes: L73.2 - Hidradenitis suppurativa SNOMED: 04657805 (3) Acute blood loss anemia ICD Codes: D62 - Acute posthemorrhagic anemia SNOMED: 211435828 (4) Iron deficiency anemia ICD Codes: D50.9 - Iron deficiency anemia, unspecified SNOMED: 72442028 Status: stable Assessment/Plan Plastic surgery consulted Empiric ancef F/u blood cultures s/p radical excision of thigh tissue with flap closure on 01/31/16 s/p radical excision of bilateral axillary tissue with flap reconstruction on Post operative recommendations include: - encourage mobilization/ambulation - encourage incentive spirometry to optimize pulmonary hygiene - DVT/GI prophylaxis as appropriate--SCD, HSQ IV venofer x 10 doses for Fe def anemia Trend CBC Pain control, bowel regimen Supportive care A total of 31 min of extra time was spent in addition to normal encounter time for care/coordination and counseling. D/w pt, RN, surgery regarding mgmt and dispo Subjective Date patient seen: Feb 01, 2017 Time patient seen: 14:42 ROS Limited/Unobtainable: No Constitutional: Reports: no symptoms HEENT: Reports: no symptoms Cardiovascular: Reports: no symptoms Respiratory: Reports: no symptoms Gastrointestinal/Abdominal: Reports: no symptoms Genitourinary: Reports: no symptoms Neurologic/Psychiatric: Reports: no symptoms Endocrine: Reports: no symptoms Hematologic/Lymphatic: Reports: no symptoms Allergies: Coded Allergies: No Known Allergies (Unverified , 01/29/17) All Systems: reviewed and negative except above Subjective No acute o/n events s/p radical excision of thigh tissue with flap closure POD#2 s/p radical excision of bilateral axillary tissue with flap reconstruction today Pain controlled. Denies f/c, n/v, d/c, chest pain, SOB Objective Last 24 Hour Vital Signs Date Time Temp Pulse Resp B/P (MAP) Pulse Ox O2 Delivery O2 Flow Rate FiO2 02/01/17 13:30 18 02/01/17 13:00 16 02/01/17 12:45 16 02/01/17 12:45 97.6 70 16 125/62 96 Nasal Cannula 3.0 02/01/17 12:42 97.6 02/01/17 12:40 97.9 80 18 111/54 96 Nasal Cannula 3.0 02/01/17 12:30 71 18 115/50 95 Nasal Cannula 3.0 02/01/17 12:25 17 02/01/17 12:15 76 15 121/52 98 Nasal Cannula 3.0 02/01/17 12:10 18 02/01/17 12:00 73 17 119/50 95 Nasal Cannula 3.0 02/01/17 11:45 77 13 125/53 96 Nasal Cannula 3.0 02/01/17 11:30 71 16 123/54 98 Nasal Cannula 3.0 02/01/17 11:16 79 20 99 02/01/17 11:15 81 14 122/64 100 Simple Mask 6.0 02/01/17 11:08 97.8 72 20 136/62 100 Simple Mask 6.0 02/01/17 09:47 74 20 98 02/01/17 08:00 99.2 75 17 110/58 96 Room Air 02/01/17 08:00 20 02/01/17 04:27 98.2 89 18 120/68 97 Room Air 02/01/17 04:00 18 02/01/17 00:14 98.8 101 20 115/69 95 Room Air 02/01/17 00:00 18 01/31/17 20:11 98.3 83 19 111/63 96 Room Air 01/31/17 20:00 18 01/31/17 17:50 99.5 01/31/17 17:45 18 01/31/17 16:21 99.5 86 20 111/57 100 Room Air 01/31/17 16:00 20 Laboratory Tests 02/01/17 05:20: White Blood Count 9.5, Red Blood Count 3.95L, Hemoglobin 8.4L, Hematocrit 27.7L , Mean Corpuscular Volume 70L, Mean Corpuscular Hemoglobin 21.3L, Mean Corpuscular Hemoglobin Concent 30.3L, Red Cell Distribution Width 22.4H, Platelet Count 219, Mean Platelet Volume 9.3, Neutrophils (%) (Auto) 75.3H, Lymphocytes (%) (Auto) 13.8L, Monocytes (%) (Auto) 8.4, Eosinophils (%) (Auto) 1.7, Basophils (%) (Auto) 0.8 Height (Feet): 5 Height (Inches): 6.00 Weight (Pounds): 200 Objective General: alert, cooperative, no distress, appears stated age Head: normocephalic, without obvious abnormality, atraumatic Eyes: conjunctivae/corneas clear. PERRL, EOM's intact Throat: lips, mucosa, and tongue normal. MMM Neck: supple, symmetrical, trachea midline, and no JVD Lungs: clear to auscultation bilaterally Heart: regular rate and rhythm, S1, S2 normal, no murmur, click, rub or gallop Abdomen: soft, non-tender, non-distended, bowel sounds normal; no masses or organomegaly Extremities: extremities normal, atraumatic, no cyanosis or edema Pulses: 2+ and symmetric Skin: skin color, texture, turgor normal; no rashes or lesions Neurologic: grossly normal, no focal deficits Denis Griffin M.D. Feb 01, 2017 14:43
[2017-02-01] MEDS ORDERED: Tubing IV Secondary IV ONE (18:49)
[2017-02-01] MEDS ORDERED: D5 1/2NS 1000ml IV ONE (18:49)
[2017-02-01] MEDS ORDERED: PCA shift volume MISC SCH (19:00)
[2017-02-01] MEDS ORDERED: DiphenhydrAMINE 50mg/ml Inj IVP ONE (20:15)
[2017-02-01] MEDS: Iron Sucrose 100 MG in NS 55 ML IV SCH (20:32)
--- NOTE | 2017-02-01 22:30 | Operative Note - Dictated ---
DATE OF OPERATION: 02/01/2017 PREOPERATIVE DIAGNOSIS: Bilateral axillary infected tissue. POSTOPERATIVE DIAGNOSIS: Bilateral axillary infected tissue. PROCEDURES: 1. Radical excision of right axillary tissue. 2. Elevation of anterior chest wall flap for closure of right axillary wound. 3. Elevation of right medial arm flap for closure of right axillary wound. 4. Radical excision of left axillary tissue. 5. Elevation of the anterior left-sided chest wall flap for closure of left axillary wound. 6. Elevation of the left medial arm flap for closure of axillary wound. SURGEON: Familia Clifford M.D. CORPORATE FINANCIAL ANALYST: Irene Gresham M.D. ANESTHESIA: General. COMPLICATIONS: None. DRAINS: Included one ADITHYA in each axilla. DISPOSITION: Stable to the recovery room. Indications For Surgery: This is a 26-year-old female, who presented with bilateral axillary infected tissue recently underwent bilateral groin reconstruction for the similar type of infection and has done well from the groin reconstruction and now presents for axillary excision and reconstruction. She understands the risks and benefits of surgery and agrees to proceed. Details Of The Operation: The patient was brought to the operating room and laid in the supine position on the operating room table. Her bilateral axilla and chest were prepped and draped in a sterile and usual fashion. We first began by marking out the areas of disease in both axillae and then began on the right side. A marking pen was used to reinforce the puckett that were made preoperatively. A #10 blade was then used to make the axillary incision and electrocautery was used to radically excised the tissue sparing the infection all way down to the level of the axillary fascia. The defect that resulted measured 12 x 10 cm and was not amenable to primary closure. As such, flaps had to be elevated to allow for definitive closure of this wound. First an anterior chest wall flap was elevated just above the level of the pectoral fascia muscle with proximal and distal incisions made to fully mobilize the flap with perforators of the thoracoacromial artery perfusing tissue flap and then we noted that this was not sufficient to close the wound. As such, puckett were made for a medial arm flap based off of perforators of the brachial artery. The incision was extended down to approximately 5 to 8 cm proximal to the elbow with the incision made and the flap was fully mobilized and then was able to be inset along with the lateral anterior chest wall flap to close the wound. Prior to closure of the wound, a ADITHYA drain was placed. Hemostasis was achieved and irrigation was performed and the flaps were then brought together and closure of the donor sites on the arm was achieved using #0 and 2-0 Vicryl sutures and a running 3-0 Prolene with interrupted 2-0 Prolene was used to close the skin. In a similar fashion, the contralateral side was addressed by using a #10 blade to make the skin incision around the left axillary tissue and electrocautery was then further implemented to perform the radical excision all the way down to the level of the axillary fascia. The defect that resulted on this side was 14 x 15 cm and again was not amenable to primary closure. As such, flap had to be elevated again on this side. An anterior chest wall flap based off of perforators of the thoracoacromial artery was elevated above the level of the pectoralis fascia. The pectoralis major fascia with proximal and distal incisions made to fully mobilize the flap in a similar fashion because this flap was not enough to close the wound, a medial arm flap based off of perforators of the brachial artery was also elevated just above the brachial fascia, a back cut incision performed all the way up to the level approximately 8 cm proximal to the elbow. At this point, the flap could be fully mobilized and brought into the defect and approximated to the chest wall flap that had been elevated. The wound was copiously irrigated with pulse lavage. A ADITHYA drain size #15 was placed. Hemostasis was achieved and the flaps were brought together using #0 and 2-0 Vicryl sutures. The brachial arm flap at donor site was closed with #0 and 2-0 Vicryl sutures and the skin for all the wounds was closed with a running 3-0 Prolene suture continuous with interrupted 2-0 Prolene on top and ADITHYA drains were secured in place with 3-0 nylon sutures. The patient tolerated the procedure well. Dressings were applied. There was no complications. Familia Clifford M.D. DR: KAREEM JOB#: [id number] CC:
[2017-02-02] VITALS: BP 115/62
[2017-02-02 04:00] VITALS: BP 111/60
[2017-02-02] MEDS: ceFAZolin sod 1 GM in D5W 55 ML IVPB SCH ×3 (05:42→22:11)
[2017-02-02] MEDS: PCA shift volume MISC SCH ×2 (07:00→19:00)
[2017-02-02 08:00] VITALS: BP 107/53
[2017-02-02 08:13] LABS: BASOPHILS % (AUTO) 0.6 % (0.0-2.0); EOSINOPHILS % (AUTO) 1.6 % (0.0-3.0); LYMPHOCYTES % (AUTO) 9.9 % (20.0-45.0); MEAN CORPUSCULAR HGB CONC 29.5 G/DL (32.0-36.0); MEAN CORPUSCULAR VOLUME 71 FL (80-99); MEAN PLATELET VOLUME 9.3 FL (6.5-10.1); MONOCYTES % (AUTO) 7.2 % (1.0-10.0); NEUTROPHILS % (AUTO) 80.6 % (45.0-75.0); PLATELET COUNT 226 K/UL (150-450); RED BLOOD COUNT 3.81 M/UL (4.20-5.40); RED CELL DISTRIBUTION WIDTH 22.2 % (11.6-14.8); WHITE BLOOD COUNT 9.7 K/UL (4.8-10.8)
[2017-02-02] MEDS: Docusate 100mg cap ORAL SCH ×2 (09:22→17:58)
[2017-02-02] MEDS: Heparin 5000 units/ml inj SUBQ SCH ×2 (09:23→22:13)
--- NOTE | 2017-02-02 10:58 | 48 Hour Post Anesthesia Eval ---
Post Anesthesia Evaluation Procedure: excision and closure of bilateral axillary wounds Date of Evaluation: Feb 02, 2017 Time of Evaluation: 10:57 Blood Pressure Systolic: 117 0: 56 Pulse Rate: 76 Respiratory Rate: 20 Temperature (Fahrenheit): 98.1 O2 Sat by Pulse Oximetry: 98 Airway: patent Nausea: No Vomiting: No Pain Intensity: 3 Hydration Status: adequate Cardiopulmonary Status: stable Mental Status/LOC: patient returned to baseline Follow-up Care/Observations: n/a Post-Anesthesia Complications: none Follow-up care needed: N/A ROSA NAQVI M.D. Feb 02, 2017 10:58
[2017-02-02 11:46] VITALS: BP 108/65
[2017-02-02] MEDS: PCA HYDROmorphone 1mg/ml 30 ML IV PRN (12:20)
[2017-02-02] MEDS: D5 1/2NS 1,000 ML IV SCH (12:48)
--- NOTE | 2017-02-02 13:26 | General Progress Note ---
Assessment/Plan Problem List: (1) Abscess ICD Codes: L02.91 - Cutaneous abscess, unspecified SNOMED: 936085609 (2) Hidradenitis suppurativa ICD Codes: L73.2 - Hidradenitis suppurativa SNOMED: 91072019 (3) Acute blood loss anemia ICD Codes: D62 - Acute posthemorrhagic anemia SNOMED: 090236408 (4) Iron deficiency anemia ICD Codes: D50.9 - Iron deficiency anemia, unspecified SNOMED: 04840291 Status: stable Assessment/Plan Plastic surgery consulted Empiric ancef F/u blood cultures s/p radical excision of thigh tissue with flap closure on 01/31/16 s/p radical excision of bilateral axillary tissue with flap reconstruction on Post operative recommendations include: - encourage mobilization/ambulation - encourage incentive spirometry to optimize pulmonary hygiene - DVT/GI prophylaxis as appropriate--SCD, HSQ IV venofer x 10 doses for Fe def anemia Trend CBC Pain control, bowel regimen Supportive care A total of 31 min of extra time was spent in addition to normal encounter time for care/coordination and counseling. D/w pt, RN, surgery regarding mgmt and dispo. Hgb slightly downtrending, will cont to monitor per surgery. Subjective Date patient seen: Feb 02, 2017 Time patient seen: 13:25 ROS Limited/Unobtainable: No Constitutional: Reports: no symptoms HEENT: Reports: no symptoms Cardiovascular: Reports: no symptoms Respiratory: Reports: no symptoms Gastrointestinal/Abdominal: Reports: no symptoms Genitourinary: Reports: no symptoms Neurologic/Psychiatric: Reports: no symptoms Endocrine: Reports: no symptoms Hematologic/Lymphatic: Reports: no symptoms Allergies: Coded Allergies: No Known Allergies (Unverified , 01/29/17) All Systems: reviewed and negative except above Subjective No acute o/n events s/p radical excision of thigh tissue with flap closure POD#3 s/p radical excision of bilateral axillary tissue with flap reconstruction POD#1 Pain controlled. Denies f/c, n/v, d/c, chest pain, SOB Objective Last 24 Hour Vital Signs Date Time Temp Pulse Resp B/P (MAP) Pulse Ox O2 Delivery O2 Flow Rate FiO2 02/02/17 12:00 16 02/02/17 11:46 98.0 89 18 108/65 94 Room Air 02/02/17 10:58 76 20 98 02/02/17 08:00 99.1 87 18 107/53 93 Room Air 02/02/17 08:00 16 02/02/17 04:00 16 02/02/17 04:00 98.5 99 17 111/60 95 02/02/17 00:00 16 02/02/17 00:00 98.8 94 18 115/62 95 Room Air 02/01/17 20:40 99.2 02/01/17 20:00 16 02/01/17 20:00 99.2 104 17 111/64 96 Nasal Cannula 02/01/17 18:49 98.2 02/01/17 16:00 18 02/01/17 16:00 98.2 74 17 115/53 96 Room Air 02/01/17 13:30 18 Intake and Output 02/02/17 02/03/17 19:00 07:00 Intake Total 375 ml Balance 375 ml IV Total 375 ml Laboratory Tests 02/02/17 06:54: White Blood Count 9.7, Red Blood Count 3.81L, Hemoglobin 8.0L, Hematocrit 27.1L , Mean Corpuscular Volume 71L, Mean Corpuscular Hemoglobin 21.0L, Mean Corpuscular Hemoglobin Concent 29.5L, Red Cell Distribution Width 22.2H, Platelet Count 226, Mean Platelet Volume 9.3, Neutrophils (%) (Auto) 80.6H, Lymphocytes (%) (Auto) 9.9L, Monocytes (%) (Auto) 7.2, Eosinophils (%) (Auto) 1.6, Basophils (%) (Auto) 0.6 Height (Feet): 5 Height (Inches): 6.00 Weight (Pounds): 200 Objective General: alert, cooperative, no distress, appears stated age Head: normocephalic, without obvious abnormality, atraumatic Eyes: conjunctivae/corneas clear. PERRL, EOM's intact Throat: lips, mucosa, and tongue normal. MMM Neck: supple, symmetrical, trachea midline, and no JVD Lungs: clear to auscultation bilaterally Heart: regular rate and rhythm, S1, S2 normal, no murmur, click, rub or gallop Abdomen: soft, non-tender, non-distended, bowel sounds normal; no masses or organomegaly Extremities: extremities normal, atraumatic, no cyanosis or edema Pulses: 2+ and symmetric Skin: skin color, texture, turgor normal; no rashes or lesions Neurologic: grossly normal, no focal deficits Denis Griffin M.D. Feb 02, 2017 13:26
[2017-02-02 16:00] VITALS: BP 117/61
[2017-02-02 20:21] VITALS: BP 139/71
[2017-02-02] MEDS: Iron Sucrose 100 MG in NS 55 ML IV SCH (21:58)
[2017-02-03 00:19] VITALS: BP 130/80
[2017-02-03] MEDS ORDERED: HydrOXYzine 25mg tab ORAL PRN (00:30)
[2017-02-03] MEDS: D5 1/2NS 1,000 ML IV SCH (01:40)
[2017-02-03 04:00] VITALS: BP 112/55
[2017-02-03] MEDS: ceFAZolin sod 1 GM in D5W 55 ML IVPB SCH ×3 (05:48→21:50)
[2017-02-03 06:31] LABS: MEAN CORPUSCULAR HEMOGLOBIN 21.8 PG (27.0-31.0); MEAN CORPUSCULAR HGB CONC 30.6 G/DL (32.0-36.0); MEAN CORPUSCULAR VOLUME 71 FL (80-99); MEAN PLATELET VOLUME 8.2 FL (6.5-10.1); PLATELET COUNT 250 K/UL (150-450); RED BLOOD COUNT 3.59 M/UL (4.20-5.40); RED CELL DISTRIBUTION WIDTH 23.1 % (11.6-14.8)
[2017-02-03] MEDS: PCA shift volume MISC SCH (07:30)
[2017-02-03 07:55] LABS: ANION GAP 12 (5-15); CALCIUM 8.7 mg/dL (8.6-10.2); CARBON DIOXIDE 25 mEQ/L (20-30); CHLORIDE 102 mEQ/L (98-107); CREATININE 0.5 mg/dL (0.5-0.9); GLOMERULAR FILTRATION RATE > 60 mL/min (>60); HEMOLYSIS 0; POTASSIUM 3.8 mEQ/L (3.4-4.9); SODIUM 139 mEQ/L (135-145)
[2017-02-03] MEDS: Docusate 100mg cap ORAL SCH ×2 (09:22→17:44)
[2017-02-03] MEDS: Heparin 5000 units/ml inj SUBQ SCH ×2 (09:25→20:31)
[2017-02-03] MEDS ORDERED: Norco 10mg/325mg tab ORAL PRN (10:30)
--- NOTE | 2017-02-03 10:40 | General Progress Note ---
Progress Note Progress Note Pt seen and examined. Doing well. POD# 2 and 4. Will remove dressings in AM. Plan for DC in AM. KASEY Burt MD Feb 03, 2017 10:40
[2017-02-03 11:29] VITALS: BP 113/59
[2017-02-03] MEDS ORDERED: DiphenhydrAMINE 50mg/ml Inj IVP PRN (12:00)
[2017-02-03] MEDS ORDERED: KEFLEX500 MG ORAL (12:08)
[2017-02-03] MEDS ORDERED: HYDROCODON-ACE1 EA13 ORAL (12:08)
[2017-02-03] MEDS: Norco 10mg/325mg tab ORAL PRN ×3 (13:04→21:55)
[2017-02-03] MEDS ORDERED: D5 1/2NS 1000ml IV ONE (14:03)
[2017-02-03] MEDS ORDERED: Tubing IV Secondary IV ONE (14:03)
[2017-02-03 15:52] VITALS: BP 124/87
[2017-02-03 20:00] VITALS: BP 117/64
[2017-02-03] MEDS: Iron Sucrose 100 MG in NS 55 ML IV SCH (20:28)
[2017-02-03] MEDS ORDERED: Zolpidem 5mg tab ORAL PRN (21:00)
--- NOTE | 2017-02-03 21:49 | General Progress Note ---
Assessment/Plan Problem List: (1) Abscess ICD Codes: L02.91 - Cutaneous abscess, unspecified SNOMED: 027439004 (2) Hidradenitis suppurativa ICD Codes: L73.2 - Hidradenitis suppurativa SNOMED: 68630977 (3) Acute blood loss anemia ICD Codes: D62 - Acute posthemorrhagic anemia SNOMED: 432637130 (4) Iron deficiency anemia ICD Codes: D50.9 - Iron deficiency anemia, unspecified SNOMED: 77527955 Status: stable Assessment/Plan Plastic surgery consulted Empiric ancef F/u blood cultures s/p radical excision of thigh tissue with flap closure on 01/31/16 s/p radical excision of bilateral axillary tissue with flap reconstruction on Post operative recommendations include: - encourage mobilization/ambulation - encourage incentive spirometry to optimize pulmonary hygiene - DVT/GI prophylaxis as appropriate--SCD, HSQ IV venofer x 10 doses for Fe def anemia Trend CBC Pain control, bowel regimen Supportive care DC likely tomorrow per surgery A total of 32 min of extra time was spent in addition to normal encounter time for care/coordination and counseling. D/w pt, RN, surgery regarding mgmt and dispo. Hgb slightly downtrending, will cont to monitor per surgery. Subjective Date patient seen: Feb 03, 2017 Time patient seen: 13:00 ROS Limited/Unobtainable: No Constitutional: Reports: no symptoms HEENT: Reports: no symptoms Cardiovascular: Reports: no symptoms Respiratory: Reports: no symptoms Gastrointestinal/Abdominal: Reports: no symptoms Genitourinary: Reports: no symptoms Neurologic/Psychiatric: Reports: no symptoms Endocrine: Reports: no symptoms Hematologic/Lymphatic: Reports: no symptoms Allergies: Coded Allergies: No Known Allergies (Unverified , 01/29/17) All Systems: reviewed and negative except above Subjective No acute o/n events s/p radical excision of thigh tissue with flap closure POD#4 s/p radical excision of bilateral axillary tissue with flap reconstruction POD#2 Hgb 7.8, asymptomatic Pain controlled. Denies f/c, n/v, d/c, chest pain, SOB Objective Last 24 Hour Vital Signs Date Time Temp Pulse Resp B/P (MAP) Pulse Ox O2 Delivery O2 Flow Rate FiO2 02/03/17 20:00 99.2 76 19 117/64 98 Room Air 02/03/17 15:52 98.4 83 20 124/87 98 Room Air 02/03/17 11:29 99.0 72 20 113/59 100 Room Air 02/03/17 08:00 17 02/03/17 04:00 16 02/03/17 04:00 99.0 75 18 112/55 95 Room Air 02/03/17 00:19 98.1 95 19 130/80 95 Room Air 02/03/17 00:00 17 Intake and Output 02/03/17 02/04/17 19:00 07:00 Intake Total 685 ml Output Total 1300 ml 60 ml Balance -615 ml -60 ml Intake Oral 685 ml Output Urine Total 1300 ml Drainage Total 60 ml # Voids 1 Laboratory Tests 02/03/17 06:10: White Blood Count 8.0, Red Blood Count 3.59L, Hemoglobin 7.8L, Hematocrit 25.6L , Mean Corpuscular Volume 71L, Mean Corpuscular Hemoglobin 21.8L, Mean Corpuscular Hemoglobin Concent 30.6L, Red Cell Distribution Width 23.1H, Platelet Count 250, Mean Platelet Volume 8.2, Neutrophils (%) (Auto) , Lymphocytes (%) (Auto) , Monocytes (%) (Auto) , Eosinophils (%) (Auto) , Basophils (%) (Auto) , Sodium Level 139, Potassium Level 3.8, Chloride Level 102 , Carbon Dioxide Level 25, Anion Gap 12, Blood Urea Nitrogen 3L, Creatinine 0.5 , Estimat Glomerular Filtration Rate > 60, Glucose Level 100, Calcium Level 8.7 Height (Feet): 5 Height (Inches): 6.00 Weight (Pounds): 200 Objective General: alert, cooperative, no distress, appears stated age Head: normocephalic, without obvious abnormality, atraumatic Eyes: conjunctivae/corneas clear. PERRL, EOM's intact Throat: lips, mucosa, and tongue normal. MMM Neck: supple, symmetrical, trachea midline, and no JVD Lungs: clear to auscultation bilaterally Heart: regular rate and rhythm, S1, S2 normal, no murmur, click, rub or gallop Abdomen: soft, non-tender, non-distended, bowel sounds normal; no masses or organomegaly Extremities: extremities normal, atraumatic, no cyanosis or edema Pulses: 2+ and symmetric Skin: skin color, texture, turgor normal; no rashes or lesions Neurologic: grossly normal, no focal deficits Denis Griffin M.D. Feb 03, 2017 21:49
[2017-02-04 00:15] VITALS: BP 100/62
[2017-02-04] MEDS: Norco 10mg/325mg tab ORAL PRN (02:39)
[2017-02-04 04:00] VITALS: BP 120/80
[2017-02-04] MEDS: ceFAZolin sod 1 GM in D5W 55 ML IVPB SCH (05:34)
[2017-02-04 06:38] LABS: BASOPHILS % (AUTO) 1.2 % (0.0-2.0); EOSINOPHILS % (AUTO) 5.1 % (0.0-3.0); MEAN CORPUSCULAR HEMOGLOBIN 21.4 PG (27.0-31.0); MEAN CORPUSCULAR HGB CONC 29.8 G/DL (32.0-36.0); MEAN CORPUSCULAR VOLUME 72 FL (80-99); MEAN PLATELET VOLUME 8.4 FL (6.5-10.1); MONOCYTES % (AUTO) 6.9 % (1.0-10.0); NEUTROPHILS % (AUTO) 64.8 % (45.0-75.0); PLATELET COUNT 249 K/UL (150-450); RED BLOOD COUNT 3.77 M/UL (4.20-5.40); RED CELL DISTRIBUTION WIDTH 24.1 % (11.6-14.8); WHITE BLOOD COUNT 6.4 K/UL (4.8-10.8)
[2017-02-04] MEDS: Docusate 100mg cap ORAL SCH (08:49)
[2017-02-04] MEDS: Heparin 5000 units/ml inj SUBQ SCH (08:58)
--- NOTE | 2017-02-04 12:42 | Discharge Summary ---
Discharge Summary Hospital Course Date of Admission Jan 29, 2017 at 12:40 Date of Discharge 02/04/17 Admitting Diagnosis abscess, cellulitis Reason for Hospitalization: abscess HPI 26y/o female with pmh of hidradenitis suppurative who presents with worsening redness/swelling/pain of b/l axilla and groin. Pt has tried PO antibiotics without much success. Denies f/c, n/v, d/c, chest pain, SOB. Able to ambulate several blocks and climb several flights of stairs w/o symptoms. Former smoker, quit 1-2 weeks ago Consultations Plastic surgery Procedures s/p radical excision of thigh tissue with flap closure on 01/31/16 s/p radical excision of bilateral axillary tissue with flap reconstruction on Hospital Course Pt was admitted and continued on IV antibiotics. She was seen by plastic surgery. She underwent radical excision of thigh tissue with flap closure on , and then radical excision of bilateral axillary tissue with flap reconstruction on 02/01/17. She tolerated the procedure well. She was continued on wound care and one wounds stable she was discharged home with PO pain meds and PO antibiotics. Pt also w/ severe Fe def anemia which was treated w/ course of IV venofer. She was required blood transfusion for anemia. Prior to d/c, pt was HDS, tolerating PO and ambulating w/o assistance. Discharge Medications New Medications: Cephalexin* (Keflex*) 500 Mg Capsule 500 MG ORAL Q6H for 7 Days, #28 CAP 0 Refills Hydrocodone Bit/Acetaminophen 10-325* (Hydrocodon-Acetaminophn 10-325*) 1 Each Tablet 1 EA ORAL Q4H PRN, #15 TAB Hydrocodone Bit/Acetaminophen 10-325* (Hydrocodon-Acetaminophn 10-325*) 1 Each Tablet 2 EA ORAL Q4H PRN, #15 TAB Continued Medications: No Known Medications* (NKM - No Known Medications*) . 0 ., 0 Refills Discharge Condition Upon Discharge: stable Discharge Disposition Patient was discharged to Home (01) Discharge Diagnoses: (1) Abscess (2) Hidradenitis suppurativa (3) Acute blood loss anemia (4) Iron deficiency anemia Denis Griffin M.D. Feb 04, 2017 12:42
== END 2017-02-04 12:20 | disposition home or self-care (01) | DRG 574 ==
LOC: EMR 12:15 → EDBEDREQ 12:36 → 3E 12:40 → EDBEDREQ 13:44
PROC: 0JB80ZZ Excision of Abdomen Subcutaneous Tissue and Fascia, Open Approach (ICD-10-PCS; principal; 2017-01-30 13:00)
PROC: 0H8JXZZ Division of Left Upper Leg Skin, External Approach (ICD-10-PCS; principal; 2017-01-30 13:00)
PROC: 0H8HXZZ Division of Right Upper Leg Skin, External Approach (ICD-10-PCS; principal; 2017-01-30 13:00)
PROC: 0JBL0ZZ Excision of Right Upper Leg Subcutaneous Tissue and Fascia, Open Approach (ICD-10-PCS; principal; 2017-01-30 13:00)
PROC: 0H8CXZZ Division of Left Upper Arm Skin, External Approach (ICD-10-PCS; 2017-02-01)
PROC: 0JBF0ZZ Excision of Left Upper Arm Subcutaneous Tissue and Fascia, Open Approach (ICD-10-PCS; 2017-02-01)
PROC: 0H85XZZ Division of Chest Skin, External Approach (ICD-10-PCS; 2017-02-01)
PROC: 0H8BXZZ Division of Right Upper Arm Skin, External Approach (ICD-10-PCS; 2017-02-01)
PROC: 0JBD0ZZ Excision of Right Upper Arm Subcutaneous Tissue and Fascia, Open Approach (ICD-10-PCS; 2017-02-01)
DX: L02.214 Cutaneous abscess of groin (principal); L02.412 Cutaneous abscess of left axilla; D62 Acute posthemorrhagic anemia; L02.411 Cutaneous abscess of right axilla; L73.2 Hidradenitis suppurativa; Z98.84 Bariatric surgery status; D50.9 Iron deficiency anemia, unspecified; Z87.891 Personal history of nicotine dependence
CPT/HCPCS: 36415; 71010; 80048; 80053; 82550; 82553; 82728; 82962; 83540; 83550; 83605; 85025; 85610; 85730; 86850; 86900; 86901; 87040; 93005; 94003; 94150; 94760; 99285; J2250; J2405; J2710

== ENCOUNTER 2017-02-26 14:58 | Inpatient (IN) | payer OTHER ==
[~2017-02-26] VITALS: Ht 165.1 cm; Wt 81.6 kg
[~2017-02-26 14:58] MED LIST: HYDROCODON-ACE1 EA13 ORAL; KEFLEX500 MG ORAL; NKM
[2017-02-26 16:34] LABS: BASOPHILS % (AUTO) 1.3 % (0.0-2.0); EOSINOPHILS % (AUTO) 4.3 % (0.0-3.0); LYMPHOCYTES % (AUTO) 28.3 % (20.0-45.0); MEAN CORPUSCULAR HEMOGLOBIN 23.3 PG (27.0-31.0); MEAN CORPUSCULAR HGB CONC 29.7 G/DL (32.0-36.0); MEAN CORPUSCULAR VOLUME 79 FL (80-99); MEAN PLATELET VOLUME 9.6 FL (6.5-10.1); MONOCYTES % (AUTO) 5.6 % (1.0-10.0); NEUTROPHILS % (AUTO) 60.5 % (45.0-75.0); PLATELET COUNT 279 K/UL (150-450); RED BLOOD COUNT 4.36 M/UL (4.20-5.40); RED CELL DISTRIBUTION WIDTH 22.3 % (11.6-14.8); WHITE BLOOD COUNT 7.4 K/UL (4.8-10.8)
[2017-02-26 16:36] LABS: INR 0.9 (0.9-1.1); PROTHROMBIN TIME 9.9 SEC (9.30-11.50)
[2017-02-26 16:43] LABS: ALANINE AMINOTRANSFERASE 20 U/L (12-78); ALBUMIN/GLOBULIN RATIO 0.8 (1.0-2.7); ANION GAP 10 (5-15); ASPARTATE AMINO TRANSFERASE 12 U/L (15-37); CALCIUM 9.4 MG/DL (8.5-10.1); CARBON DIOXIDE 26 MMOL/L (21-32); CHLORIDE 104 MMOL/L (98-107); CREATININE 0.6 MG/DL (0.55-1.30); GLOMERULAR FILTRATION RATE > 60 mL/min (>60); SODIUM 140 MMOL/L (136-145); TOTAL PROTEIN 7.7 G/DL (6.4-8.2)
[2017-02-26] MEDS ORDERED: ceFAZolin 1gm/50ml Premix 50 ML IV SCH (16:45)
[2017-02-26] MEDS ORDERED: Mylanta II UD 30ml ORAL PRN (16:45)
--- NOTE | 2017-02-26 16:46 | History and Physical ---
History of Present Illness General Date patient seen: Feb 26, 2017 Time patient seen: 16:00 Reason for Hospitalization: Wound dehiscense Present Illness HPI 27y/o female with pmh of hidradenitis suppurative s/p recent surgery who presents with wound deshiscnse. Pt recently discharged 01/29-02/04 where she underwent radical excision of thigh tissue with flap closure on 01/31/16 and s/p radical excision of bilateral axillary tissue with flap reconstruction on . Pt states she was doing well initally. She completed her PO antibiotis. However, in the last few days she noted her axillary wounds to have opened up. She notes increased redness/swelling/drainage. She denies injury to area or trauma. Denies f/c, n/v, d/c, chest pain, SOB. Able to ambulate several blocks and climb several flights of stairs w/o symptoms. Former smoker, quit 1-2 weeks ago. Allergies: Coded Allergies: IBUPROFEN (Verified Allergy, Unknown, 02/26/17) GI ulcer Medication History Scheduled Cephalexin* (Keflex*), 500 MG ORAL Q6H No Known Medications* (NKM - No Known Medications*), 0 ., (Reported) Scheduled PRN Hydrocodone Bit/Acetaminophen 10-325* (Hydrocodon-Acetaminophn 10-325*), 1 EA ORAL Q4H PRN Hydrocodone Bit/Acetaminophen 10-325* (Hydrocodon-Acetaminophn 10-325*), 2 EA ORAL Q4H PRN Patient History History Provided By: Patient, Medical Record, PMD Healthcare decision maker Resuscitation status Advanced Directive on File Past Medical/Surgical History Past Medical/Surgical History: (1) Hidradenitis suppurativa (2) Iron deficiency anemia Family History Family History: Patient reports no known family medical history. Social History Social History: (1) Former smoker Review of Systems ROS Narrative CONSTITUTIONAL: No weight loss, fever, chills, weakness or fatigue. HEENT: Eyes: No visual loss, blurred vision, double vision or yellow sclerae. Ears, Nose, Throat: No hearing loss, sneezing, congestion, runny nose or sore throat. SKIN: No rash or itching. CARDIOVASCULAR: No chest pain, chest pressure or chest discomfort. No palpitations or edema. RESPIRATORY: No shortness of breath, cough or sputum. GASTROINTESTINAL: No anorexia, nausea, vomiting or diarrhea. No abdominal pain or blood. NEUROLOGICAL: No headache, dizziness, syncope, paralysis, ataxia, numbness or tingling in the extremities. No change in bowel or bladder control. MUSCULOSKELETAL: No muscle, back pain, joint pain or stiffness. HEMATOLOGIC: No anemia, bleeding or bruising. LYMPHATICS: No enlarged nodes. No history of splenectomy. PSYCHIATRIC: No history of depression or anxiety. ENDOCRINOLOGIC: No reports of sweating, cold or heat intolerance. No polyuria or polydipsia. ALLERGIES: No history of asthma, hives, eczema or rhinitis. Physical Exam Physical Exam Narrative General: alert, cooperative, no distress, appears stated age Head: normocephalic, without obvious abnormality, atraumatic Eyes: conjunctivae/corneas clear. PERRL, EOM's intact Throat: lips, mucosa, and tongue normal. MMM Neck: supple, symmetrical, trachea midline, and no JVD Lungs: clear to auscultation bilaterally Heart: regular rate and rhythm, S1, S2 normal, no murmur, click, rub or gallop Abdomen: soft, non-tender, non-distended, bowel sounds normal; no masses or organomegaly Extremities: extremities normal, atraumatic, no cyanosis or edema Pulses: 2+ and symmetric Skin: skin color, texture, turgor normal; no rashes or lesions Neurologic: grossly normal, no focal deficits Last 24 Hour Vital Signs Date Time Temp Pulse Resp B/P (MAP) Pulse Ox O2 Delivery O2 Flow Rate FiO2 02/26/17 15:05 98.1 73 16 128/77 98 Room Air Laboratory Tests Test 02/26/17 15:33 White Blood Count 7.4 K/UL (4.8-10.8) Red Blood Count 4.36 M/UL (4.20-5.40) Hemoglobin 10.2 G/DL (12.0-16.0) L Hematocrit 34.3 % (37.0-47.0) L Mean Corpuscular Volume 79 FL (80-99) L Mean Corpuscular Hemoglobin 23.3 PG (27.0-31.0) L Mean Corpuscular Hemoglobin Concent 29.7 G/DL (32.0-36.0) L Red Cell Distribution Width 22.3 % (11.6-14.8) H Platelet Count 279 K/UL (150-450) Mean Platelet Volume 9.6 FL (6.5-10.1) Neutrophils (%) (Auto) 60.5 % (45.0-75.0) Lymphocytes (%) (Auto) 28.3 % (20.0-45.0) Monocytes (%) (Auto) 5.6 % (1.0-10.0) Eosinophils (%) (Auto) 4.3 % (0.0-3.0) H Basophils (%) (Auto) 1.3 % (0.0-2.0) Prothrombin Time 9.9 SEC (9.30-11.50) Prothromb Time International Ratio 0.9 (0.9-1.1) Activated Partial Thromboplast Time 23 SEC (23-33) Urine HCG, Qualitative Negative Sodium Level 140 MMOL/L (136-145) Potassium Level 4.0 MMOL/L (3.5-5.1) Chloride Level 104 MMOL/L (98-107) Carbon Dioxide Level 26 MMOL/L (21-32) Anion Gap 10 (5-15) Blood Urea Nitrogen 9 mg/dL (7-18) Creatinine 0.6 MG/DL (0.55-1.30) Estimat Glomerular Filtration Rate > 60 mL/min (>60) Glucose Level 80 MG/DL (74-106) Calcium Level 9.4 MG/DL (8.5-10.1) Total Bilirubin 0.3 MG/DL (0.2-1.0) Aspartate Amino Transf (AST/SGOT) 12 U/L (15-37) L Alanine Aminotransferase (ALT/SGPT) 20 U/L (12-78) Alkaline Phosphatase 51 U/L (46-116) Total Protein 7.7 G/DL (6.4-8.2) Albumin 3.4 G/DL (3.4-5.0) Globulin 4.3 g/dL Albumin/Globulin Ratio 0.8 (1.0-2.7) L Height (Feet): 5 Height (Inches): 6.00 Weight (Pounds): 180 Medications Current Medications Medications (Trade) Dose Ordered Sig/Gonzales Route PRN Reason Start Time Stop Time Status Last Admin Dose Admin Sodium Chloride 1,000 ml @ 100 mls/hr Q10H ONCE IV 02/26/17 15:11 02/27/17 01:10 02/26/17 15:45 Assessment/Plan Problem List: (1) Wound dehiscence ICD Codes: T81.30XA - Disruption of wound, unspecified, initial encounter SNOMED: 085002040 (2) Hidradenitis suppurativa ICD Codes: L73.2 - Hidradenitis suppurativa SNOMED: 56944176 Status: stable Assessment/Plan Admit in Plastic surgery consulted Empiric IV ancef Wound care Pain control, supportive care, bowel regimen If patient is required to have surgery, based on the patient's medical history, and other available ancillary data, the patient is a LOW risk for an INTERMEDIATE risk procedure. Per the most recent ACC/AHA guidelines, the patient does not need any further cardiopulmonary testing prior to the procedure and there do not appear to be any clear medical contraindications to proceeding with the proposed procedure. Discussed with pt/family, RN, surgery regarding mgmt and dispo Denis Griffin M.D. Feb 26, 2017 16:46
[2017-02-26 17:00] VITALS: BP 137/80
--- NOTE | 2017-02-26 17:18 | Emergency Room Report ---
History of Present Illness General Chief Complaint: Skin Rash/Abscess Source: Patient (MICHAEL PALMER) Present Illness HPI Patient is a 27-year-old female presenting for possible complication after hidradenitis suppurativa surgery. The patient was seen in this emergency department 4 weeks prior and admitted in order to have the procedure done. She states that she noticed a clear to yellow fluid draining from the wounds with some blood yesterday and today. She denies any injury to the area that may have caused it to rupture. She states that there were no complications. She denies any pain. She denies fever or chills. (MICHAEL PALMER) Allergies: Coded Allergies: IBUPROFEN (Verified Allergy, Unknown, 02/26/17) GI ulcer Patient History Past Medical History: see triage record Pertinent Family History: none Last Menstrual Period: 02/08/2017 Reviewed Nursing Documentation: PMH: Agreed, PSxH: Agreed (MICHAEL PALMER) Nursing Documentation-PMH Past Medical History: No History, Except For Hx Cardiac Problems: No - hidradenitis suppurativa Hx Hypertension: No Hx Pacemaker: No Hx Asthma: No Hx COPD: No Hx Diabetes: No Hx Cancer: No Hx Gastrointestinal Problems: No Hx Dialysis: No Hx Neurological Problems: No Hx Cerebrovascular Accident: No Hx Seizures: No (MICHAEL PALMER) Review of Systems All Other Systems: negative except mentioned in HPI (MICHAEL PALMER) Physical Exam Vital Signs Date Time Temp Pulse Resp B/P (MAP) Pulse Ox O2 Delivery O2 Flow Rate FiO2 02/26/17 15:05 98.1 73 16 128/77 98 Room Air Sp02 EP Interpretation: reviewed, normal General Appearance: no apparent distress, alert, GCS 15, non-toxic Head: normocephalic, atraumatic Eyes: bilateral eye normal inspection, bilateral eye PERRL ENT: hearing grossly normal, normal pharynx, no angioedema, normal voice Neck: full range of motion, supple/symm/no masses Musculoskeletal: back normal, gait/station normal, normal range of motion, non- tender Neurologic: alert, oriented x3, responsive, motor strength/tone normal, sensory intact, speech normal Psychiatric: judgement/insight normal, memory normal, mood/affect normal, no suicidal/homicidal ideation Skin: rash - bilat axilla has dressing. Mild draining of serosanguineous fluids (MICHAEL PALMER) Medical Decision Making PA Attestation Dr. iKng is my supervising physician. Patient management was discussed with my supervising physician (MICHAEL PALMER) Medicare Attestation Patient's care was seen and evaluated by myself as well agreed with all the interventions and findings, (JULIEN KING D.O.) Diagnostic Impression: Primary Impression: Hidradenitis suppurativa ER Course Patient is a 27-year-old female presenting for possible complication after hidradenitis suppurativa surgery 4 weeks prior Differential diagnoses considered but not limited to: abscess, cellulitis, insect bite, hidradenitis suppurativa, wound infection, non healing wound, among others PE: NAD. afebrile. bilat axilla: Mild draining of serosanguineous fluids. No erythema. Otherwise unremarkable All labs unremarkable. No leukocytosis The patient will be admitted in stable condition for further evaluation. Dr. king has spoken with admitting doctor Laboratory Tests Test 02/26/17 15:33 White Blood Count 7.4 K/UL (4.8-10.8) Red Blood Count 4.36 M/UL (4.20-5.40) Hemoglobin 10.2 G/DL (12.0-16.0) L Hematocrit 34.3 % (37.0-47.0) L Mean Corpuscular Volume 79 FL (80-99) L Mean Corpuscular Hemoglobin 23.3 PG (27.0-31.0) L Mean Corpuscular Hemoglobin Concent 29.7 G/DL (32.0-36.0) L Red Cell Distribution Width 22.3 % (11.6-14.8) H Platelet Count 279 K/UL (150-450) Mean Platelet Volume 9.6 FL (6.5-10.1) Neutrophils (%) (Auto) 60.5 % (45.0-75.0) Lymphocytes (%) (Auto) 28.3 % (20.0-45.0) Monocytes (%) (Auto) 5.6 % (1.0-10.0) Eosinophils (%) (Auto) 4.3 % (0.0-3.0) H Basophils (%) (Auto) 1.3 % (0.0-2.0) Prothrombin Time 9.9 SEC (9.30-11.50) Prothrombin Time INR 0.9 (0.9-1.1) PTT 23 SEC (23-33) Urine HCG, Qualitative Negative Sodium Level 140 MMOL/L (136-145) Potassium Level 4.0 MMOL/L (3.5-5.1) Chloride Level 104 MMOL/L (98-107) Carbon Dioxide Level 26 MMOL/L (21-32) Anion Gap 10 (5-15) Blood Urea Nitrogen 9 mg/dL (7-18) Creatinine 0.6 MG/DL (0.55-1.30) Estimate Glomerular Filtration Rate > 60 mL/min (>60) Glucose Level 80 MG/DL (74-106) Calcium Level 9.4 MG/DL (8.5-10.1) Total Bilirubin 0.3 MG/DL (0.2-1.0) Aspartate Amino Transferase (AST) 12 U/L (15-37) L Alanine Aminotransferase (ALT) 20 U/L (12-78) Alkaline Phosphatase 51 U/L (46-116) Total Protein 7.7 G/DL (6.4-8.2) Albumin 3.4 G/DL (3.4-5.0) Globulin 4.3 g/dL Albumin/Globulin Ratio 0.8 (1.0-2.7) L Lab Results Impression Unremarkable (MICHAEL PALMER) Last Vital Signs Date Time Temp Pulse Resp B/P (MAP) Pulse Ox O2 Delivery O2 Flow Rate FiO2 02/26/17 15:05 98.1 73 16 128/77 98 Room Air Status: improved (MICHAEL PALMER) Disposition: ADMITTED INPATIENT Condition: Stable Referrals: NOT CHOSEN IPA/,REFERRING (PCP) MICHAEL PALMER Feb 26, 2017 17:18 JULIEN KING D.O. Feb 26, 2017 18:05
[2017-02-26 17:22] VITALS: BP 137/76
[2017-02-26] MEDS ORDERED: Morphine Sulfate 4mg/ml Inj IVP PRN (17:30)
[2017-02-26] MEDS ORDERED: Morphine Sulfate 2mg/ml Inj IVP PRN (17:30)
[2017-02-26] MEDS: ceFAZolin 1gm in D5W 55ml IVP SCH (18:14)
[2017-02-26] MEDS: Docusate 100mg cap ORAL SCH (20:37)
[2017-02-26] MEDS ORDERED: Miralax 17gm pkt ORAL PRN (21:00)
[2017-02-26] MEDS ORDERED: Zolpidem 5mg tab ORAL PRN (21:00)
[2017-02-26 21:22] VITALS: BP 98/54
[2017-02-27] VITALS (14 sets, daily range): BP systolic 97–129; BP diastolic 1–99
[2017-02-27] MEDS: ceFAZolin 1gm in D5W 55ml IVP SCH ×4 (00:07→22:32)
[2017-02-27] MEDS ORDERED: D5 1/2NS 1,000 ML IV SCH (06:00)
[2017-02-27] MEDS: Docusate 100mg cap ORAL SCH ×2 (08:14→20:11)
[2017-02-27] MEDS ORDERED: Propofol 200mg/20ml IV ONE (11:19)
[2017-02-27] MEDS ORDERED: NeoSporin Gu Irrig 1ml Amp IRRIG ONE (12:58)
[2017-02-27] MEDS ORDERED: LR 1000ml 1,000 ML IVLG SCH (12:58)
[2017-02-27] MEDS ORDERED: Bacitracin 50000 Units Vial ONE (12:58)
[2017-02-27] MEDS ORDERED: Lidocaine 1% 10mg/ml/Epi 0.005mg/ml 30ml vial INJ ONE (12:58)
[2017-02-27] MEDS ORDERED: LORazepam Inj 2mg/ml 1ml IV PRN (13:00)
[2017-02-27] MEDS ORDERED: Metoclopramide 10mg/2ml Inj IVP PRN (13:00)
[2017-02-27] MEDS ORDERED: Norco 5mg/325mg tab ORAL PRN ×2 (13:00→14:00)
[2017-02-27] MEDS ORDERED: Atropine Inj 1mg/10ml Syr IV PRN (13:00)
[2017-02-27] MEDS ORDERED: fentaNYL 100 mcg/2 mL IV PRN (13:00)
[2017-02-27] MEDS ORDERED: Ketorolac 60mg Inj IV PRN (13:00)
[2017-02-27] MEDS ORDERED: Norco 7.5mg/325mg tab ORAL PRN (13:00)
[2017-02-27] MEDS ORDERED: Midazolam 2mg/2ml Inj IVP PRN (13:00)
[2017-02-27] MEDS ORDERED: Ketorolac 30mg Inj IV PRN (13:00)
[2017-02-27] MEDS ORDERED: Hydromorphone 0.5mg/0.5ml inj IVP PRN (13:00)
[2017-02-27] MEDS ORDERED: DiphenhydrAMINE 50mg/ml Inj IVP PRN ×2 (13:00→14:00)
[2017-02-27] MEDS ORDERED: oxyCODONE HCL/Acetaminophen 5/325mg ORAL PRN (13:00)
--- NOTE | 2017-02-27 13:00 | Anethesia Preoperative Eval ---
Anesthesia Pre-op PMH/ROS General Date of Evaluation: Feb 27, 2017 Time of Evaluation: 13:54 Anesthesiologist: Les ASA Score: ASA 3 Mallampati Score Class I : Soft palate, uvula, fauces, pillars visible Class II: Soft palate, uvula, fauces visible Class III: Soft palate, base of uvula visible Class IV: Only hard plate visible Mallampati Classification: Class II Surgeon: Darrin Diagnosis: Hidradenitis suppurativa Surgical Procedure: R Axillary Wound Closure Anesthesia History: none Family History: no anesthesia problems Allergies: Coded Allergies: IBUPROFEN (Verified Allergy, Unknown, 02/26/17) GI ulcer Medications: see eMAR Past Medical History Gastrointestinal/Genitourinary: Reports: other - Hiatal Hernia Hematology/Immune: Reports: anemia Other: obesity - BMI 32 PSxH Narrative: Hidradenitis suppurativa SX Anesthesia Pre-op Phys. Exam Physician Exam Last Vital Signs Date Time Temp Pulse Resp B/P (MAP) Pulse Ox O2 Delivery O2 Flow Rate FiO2 02/27/17 12:00 97.4 94 20 121/73 97 Room Air Constitutional: NAD Neurologic: CN 2-12 intact Cardiovascular: RRR Respiratory: CTA Gastrointestinal: S/NT/ND Airway Exam Mallampati Score: Class II MO: full ROM: full Teeth: intact Anesthesia Pre-op A/P Labs Hematology Test 02/26/17 15:33 White Blood Count 7.4 K/UL (4.8-10.8) Red Blood Count 4.36 M/UL (4.20-5.40) Hemoglobin 10.2 G/DL (12.0-16.0) L Hematocrit 34.3 % (37.0-47.0) L Mean Corpuscular Volume 79 FL (80-99) L Mean Corpuscular Hemoglobin 23.3 PG (27.0-31.0) L Mean Corpuscular Hemoglobin Concent 29.7 G/DL (32.0-36.0) L Red Cell Distribution Width 22.3 % (11.6-14.8) H Platelet Count 279 K/UL (150-450) Mean Platelet Volume 9.6 FL (6.5-10.1) Neutrophils (%) (Auto) 60.5 % (45.0-75.0) Lymphocytes (%) (Auto) 28.3 % (20.0-45.0) Monocytes (%) (Auto) 5.6 % (1.0-10.0) Eosinophils (%) (Auto) 4.3 % (0.0-3.0) H Basophils (%) (Auto) 1.3 % (0.0-2.0) Coagulation Test 02/26/17 15:33 Prothrombin Time 9.9 SEC (9.30-11.50) Prothromb Time International Ratio 0.9 (0.9-1.1) Activated Partial Thromboplast Time 23 SEC (23-33) Chemistry Test 02/26/17 15:33 Sodium Level 140 MMOL/L (136-145) Potassium Level 4.0 MMOL/L (3.5-5.1) Chloride Level 104 MMOL/L (98-107) Carbon Dioxide Level 26 MMOL/L (21-32) Anion Gap 10 (5-15) Blood Urea Nitrogen 9 mg/dL (7-18) Creatinine 0.6 MG/DL (0.55-1.30) Estimat Glomerular Filtration Rate > 60 mL/min (>60) Glucose Level 80 MG/DL (74-106) Calcium Level 9.4 MG/DL (8.5-10.1) Total Bilirubin 0.3 MG/DL (0.2-1.0) Aspartate Amino Transf (AST/SGOT) 12 U/L (15-37) L Alanine Aminotransferase (ALT/SGPT) 20 U/L (12-78) Alkaline Phosphatase 51 U/L (46-116) Total Protein 7.7 G/DL (6.4-8.2) Albumin 3.4 G/DL (3.4-5.0) Globulin 4.3 g/dL Albumin/Globulin Ratio 0.8 (1.0-2.7) L Urine Test Test 02/26/17 15:33 Urine HCG, Qualitative Negative Risk Assessment & Plan Assessment: ASA 2 Plan: GA, BIS Status Change Before Surgery: No Pre-Antibiotics Dru Grams Ancef IV Given Within 1 Hr of Incision: Yes Time Given: 14:06 Jaswinder Saldana MD Feb 27, 2017 13:00
--- NOTE | 2017-02-27 13:24 | Immediate Post-Op Evaluation ---
Immediate Post-Op Evalulation Immediate Post-Op Evalulation Procedure: R Axillary Wound Closure Date of Evaluation: Feb 27, 2017 Time of Evaluation: 15:20 IV Fluids: 600 LR Blood Products: 0 Estimated Blood Loss: 10 Urinary Output: 0 Blood Pressure Systolic: 122 Blood Pressure Diastolic: 83 Pulse Rate: 86 Respiratory Rate: 16 O2 Sat by Pulse Oximetry: 99 Temperature (Fahrenheit): 97.3 Pain Score (1-10): 2 Nausea: No Vomiting: No Complications 0 Patient Status: awake, reacts, patent, none Hydration Status: adequate Dru Grams Ancef IV Given Within 1 Hr of Incision: Yes Time Given: 14:06 Jaswinder Saldana MD Feb 27, 2017 13:24
[2017-02-27] MEDS ORDERED: NS Irrig 1000ml ONE (13:55)
[2017-02-27] MEDS ORDERED: Glycopyrrolate 0.2mg/ml 1ml Vial ONE (13:55)
[2017-02-27] MEDS ORDERED: Dexamethasone 4mg/ml vial ONE (13:55)
[2017-02-27] MEDS ORDERED: fentaNYL 100 mcg/2 mL IV ONE (13:55)
[2017-02-27] MEDS ORDERED: LR 1000ml ONE (13:55)
[2017-02-27] MEDS ORDERED: Sterile Water Irrig 1000ml IRRIG ONE (13:55)
[2017-02-27] MEDS ORDERED: Lidocaine 1% MPF 10mg/ml 5ml ONE (13:55)
--- NOTE | 2017-02-27 13:55 | Pre-Procedure Note/Attestation ---
Pre-Procedure Note/Attestation Complete Prior to Procedure Planned Procedure: right Procedure Narrative: Right axillary wound closure Attestation I attest that I discussed the nature of the procedure; its benefits; risks and complications; and alternatives (and the risks and benefits of such alternatives ), prior to the procedure, with the patient (or the patient's legal public service representative). I attest that, if there was a reasonable possibility of needing a blood transfusion, the patient (or the patient's legal public service representative) was given the [facility] standardized written summary, pursuant to the Chaim Thom Blood Safety Act ([place] Health and Safety Code # 1645, as amended). I attest that I re-evaluated the patient just prior to the surgery and that there has been no change in the patient's H&P, except as documented below: KASEY ESCOBAR Feb 27, 2017 13:55
[2017-02-27] MEDS ORDERED: Norco 10mg/325mg tab ORAL PRN (14:00)
[2017-02-27] MEDS ORDERED: Acetaminophen (Non formulary) 100 ML IV ONE (14:00)
--- NOTE | 2017-02-27 15:09 | Operative Note - PDOC ---
Operative Note Operative Note Pre-op Diagnosis: Left axillary wound dehiscence Procedure: Closure of left axillary wound Specimen: none Complications: none Condition: stable Estimated Blood Loss: minimal Drains: none Implant(s) used?: No KASEY ESCOBAR Feb 27, 2017 15:09
--- NOTE | 2017-02-27 15:21 | Operative Note - PDOC ---
Operative Note Operative Note Pre-op Diagnosis: Right axillary wound dehiscence Procedure: Closure of right axillary wound Specimen: none Complications: none Condition: stable Estimated Blood Loss: minimal Drains: none Implant(s) used?: No KASEY ESCOBAR Feb 27, 2017 15:21
--- NOTE | 2017-02-27 16:58 | General Progress Note ---
Assessment/Plan Problem List: (1) Wound dehiscence ICD Codes: T81.30XA - Disruption of wound, unspecified, initial encounter SNOMED: 010184421 (2) Hidradenitis suppurativa ICD Codes: L73.2 - Hidradenitis suppurativa SNOMED: 96094677 Status: stable Assessment/Plan Appreciate surgery rec's s/p closure of left axillary wound on 02/26/17 Cont IV ancef Wound care Pain control, bowel regimen, supportive care DC planning for tomorrow FULL CODE A total of 32min of extra time was spent in addition to normal encounter time for care/coordination and counseling. D/w pt/family, RN, SW/CM, surgery regarding mgmt and dispo Subjective Date patient seen: Feb 27, 2017 Time patient seen: 16:56 ROS Limited/Unobtainable: No Constitutional: Reports: no symptoms HEENT: Reports: no symptoms Cardiovascular: Reports: no symptoms Respiratory: Reports: no symptoms Gastrointestinal/Abdominal: Reports: no symptoms Genitourinary: Reports: no symptoms Neurologic/Psychiatric: Reports: no symptoms Endocrine: Reports: no symptoms Hematologic/Lymphatic: Reports: no symptoms Allergies: Coded Allergies: IBUPROFEN (Verified Allergy, Unknown, 02/26/17) GI ulcer All Systems: reviewed and negative except above Subjective No acute o/n events s/p closure of left axillary wound POD#1 Pain controlled Denies f/c, n/v, d/c, chest pain, SOB Ambulating Passing gas Objective Last 24 Hour Vital Signs Date Time Temp Pulse Resp B/P (MAP) Pulse Ox O2 Delivery O2 Flow Rate FiO2 02/27/17 16:00 97.6 68 17 124/66 100 Nasal Cannula 3.0 02/27/17 15:45 71 15 123/76 100 Nasal Cannula 3.0 02/27/17 15:40 68 16 120/74 100 Nasal Cannula 3.0 02/27/17 15:30 70 17 115/72 99 Nasal Cannula 3.0 02/27/17 15:20 69 15 119/74 96 Nasal Cannula 3.0 02/27/17 15:15 74 16 123/83 99 Simple Mask 6.0 02/27/17 15:11 86 16 99 02/27/17 15:09 97.3 86 20 122/83 97 Simple Mask 02/27/17 12:00 97.4 94 20 121/73 97 Room Air 02/27/17 08:00 98.4 67 18 128/99 98 Room Air 02/27/17 04:39 98.0 57 18 97/55 98 Room Air 02/27/17 01:02 98.0 70 20 129/77 98 Room Air 02/26/17 21:22 97.5 75 19 98/54 99 Room Air 02/26/17 17:22 98.4 61 20 137/76 96 Room Air 02/26/17 17:00 74 18 137/80 99 Room Air 02/26/17 17:00 98.4 74 18 137/80 99 Room Air Intake and Output 02/27/17 02/28/17 19:00 07:00 Intake Total 375 ml Balance 375 ml Intake IV Total 375 ml Height (Feet): 5 Height (Inches): 5.00 Weight (Pounds): 180 Objective General: alert, cooperative, no distress, appears stated age Head: normocephalic, without obvious abnormality, atraumatic Eyes: conjunctivae/corneas clear. PERRL, EOM's intact Throat: lips, mucosa, and tongue normal. MMM Neck: supple, symmetrical, trachea midline, and no JVD Lungs: clear to auscultation bilaterally Heart: regular rate and rhythm, S1, S2 normal, no murmur, click, rub or gallop Abdomen: soft, non-tender, non-distended, bowel sounds normal; no masses or organomegaly Extremities: extremities normal, atraumatic, no cyanosis or edema Pulses: 2+ and symmetric Skin: skin color, texture, turgor anai Dresses c/d/i Neurologic: grossly normal, no focal deficits Denis Griffin M.D. Feb 27, 2017 16:58
[2017-02-27] MEDS ORDERED: KEFLEX500 MG ORAL (17:01)
[2017-02-27] MEDS: Heparin 5000 units/ml inj SUBQ SCH (20:13)
[2017-02-27] MEDS: HYDROmorphone 1mg/ml Carpuject IVP PRN (20:15)
--- NOTE | 2017-02-27 22:31 | Operative Note - Dictated ---
DATE OF OPERATION: 02/27/2017 PREOPERATIVE DIAGNOSIS: Right axillary wound dehiscence. POSTOPERATIVE DIAGNOSIS: Right axillary wound dehiscence. PROCEDURES: 1. Debridement and preparation of right axillary wound for flap closure. 2. Elevation of a fasciocutaneous medial arm flap for closure of left axillary wound. 3. Elevation of a posterior chest wall flap for closure of right axillary wound. SURGEON: Familia Clifford M.D. [employer] OFFICER: Aristeo Capone M.D ANESTHESIA: General. COMPLICATIONS: None. DRAINS: None. DISPOSITION: Stable to the recovery room. INDICATIONS FOR SURGERY: This is a 27-year-old female, who is approximately 2-1/2 weeks status post bilateral axillary and groin reconstruction and status post radical excision of hidradenitis. She has been doing well in the other areas including the groin and the left axilla, however, she sustained a right axillary wound dehiscence and presented to the emergency room with drainage and pain. Upon evaluation by me, I felt that she was an appropriate candidate for debridement and readvancement of the flaps for closure. She understood the risks and benefits of surgery and agreed to proceed. DETAILS OF THE OPERATION: The patient was brought to the operating room and laid in the supine position on the operating room table. Her right axilla was prepped and draped in a sterile and usual fashion. We first began by marking out the edges of the wound dehiscence with a marking pen and a #10 blade was then used to completely excise the scar as well as the underlying granulation tissue. The wound that resulted was approximately 10 x 8 cm and was clearly not amenable to primary closure. As such, the previously raised flaps both from the medial arm as well as a posterior back flap had to be reelevated to allow for tension free closure of the wound. The medial flap was elevated at the fasciocutaneous level with deep relaxing incisions made to fully mobilize the flap based off of perforators of the brachial artery. The posterior back flap was elevated based off of perforators of the intercostals as well as the thoracodorsal artery with deep relaxing incisions made to fully mobilize the flap. Once both flaps were fully mobilized, the wound was copiously irrigated. Hemostasis was achieved. The flaps were brought together and inset using #0 and 2-0 Vicryl sutures and a running 3-0 Prolene was used to close the skin, which was also then reinforced with multiple interrupted 2-0 Prolene. The patient tolerated the procedure well. There were no complications. Familia Clifford M.D. DR: CRISTINO JOB#: [id number] CC:
[2017-02-28] MEDS: HYDROmorphone 1mg/ml Carpuject IVP PRN ×2 (00:01→04:55)
[2017-02-28 00:53] VITALS: BP 99/56
--- NOTE | 2017-02-28 02:32 | 48 Hour Post Anesthesia Eval ---
Post Anesthesia Evaluation Procedure: R Axillary Wound Closure Date of Evaluation: Feb 28, 2017 Time of Evaluation: 01:04 Blood Pressure Systolic: 98 0: 56 Pulse Rate: 54 Respiratory Rate: 18 Temperature (Fahrenheit): 97.3 O2 Sat by Pulse Oximetry: 98 Airway: patent Nausea: No Vomiting: No Pain Intensity: 2 Hydration Status: adequate Cardiopulmonary Status: Stable Mental Status/LOC: patient returned to baseline Follow-up Care/Observations: 0 Post-Anesthesia Complications: 0 Follow-up care needed: N/A Jaswinder Saldana MD Feb 28, 2017 02:32
[2017-02-28 04:00] VITALS: BP 105/50
[2017-02-28] MEDS: ceFAZolin 1gm in D5W 55ml IVP SCH (05:47)
[2017-02-28 08:00] VITALS: BP 104/44
[2017-02-28] MEDS: Docusate 100mg cap ORAL SCH (08:59)
[2017-02-28] MEDS: Heparin 5000 units/ml inj SUBQ SCH (09:00)
[2017-02-28] MEDS ORDERED: PERCOCET 10-321 EACH ORAL (11:08)
[2017-02-28] MEDS ORDERED: CEPHALEXIN500 M1 ORAL (11:09)
[2017-02-28] MEDS ORDERED: Tubing IV Secondary IV ONE (12:29)
--- NOTE | 2017-02-28 13:45 | Discharge Summary ---
Discharge Summary Hospital Course Date of Admission Feb 26, 2017 at 16:13 Date of Discharge Feb 28, 2017 at 12:30 Admitting Diagnosis Hidradenitis Suppurativa Reason for Hospitalization: abscess HPI 27y/o female with pmh of hidradenitis suppurative s/p recent surgery who presents with wound deshiscnse. Pt recently discharged 01/29-02/04 where she underwent radical excision of thigh tissue with flap closure on 01/31/16 and s/p radical excision of bilateral axillary tissue with flap reconstruction on . Pt states she was doing well initally. She completed her PO antibiotis. However, in the last few days she noted her axillary wounds to have opened up. She notes increased redness/swelling/drainage. She denies injury to area or trauma. Denies f/c, n/v, d/c, chest pain, SOB. Able to ambulate several blocks and climb several flights of stairs w/o symptoms. Former smoker, quit 1-2 weeks ago. Consultations Plastic surgery Procedures s/p closure of left axillary wound on 02/26/17 Hospital Course Pt was admitted and seen by plastic surgery. She was continued on empiric antibiotics for possible infection. She underwent closure of left axillary wound on 02/26/17. Once pain controlled and wounds stable, she was discharged home on oral pain meds and antibiotics. Discharge Medications Continued Medications: Cephalexin* (Keflex*) 500 Mg Capsule 500 MG ORAL Q6H for 7 Days, #28 CAP 0 Refills (This prescription has been renewed) Cephalexin* (Cephalexin*) 500 Mg Tablet 500 MG ORAL EVERY 6 HOURS, #28 CAP Oxycodone Hcl/Acetaminophen 10-325 Mg Tablet (Percocet 10-325 Mg Tablet*) 1 Each Tablet 1 TAB ORAL Q6H PRN for For Pain, #40 TAB 0 Refills Discontinued Medications: Hydrocodone Bit/Acetaminophen 10-325* (Hydrocodon-Acetaminophn 10-325*) 1 Each Tablet 1 EA ORAL Q4H PRN, #15 TAB Hydrocodone Bit/Acetaminophen 10-325* (Hydrocodon-Acetaminophn 10-325*) 1 Each Tablet 2 EA ORAL Q4H PRN, #15 TAB No Known Medications* (NKM - No Known Medications*) . 0 ., 0 Refills Discharge Condition Upon Discharge: stable Discharge Disposition Patient was discharged to Home (01) Discharge Diagnoses: (1) Wound dehiscence (2) Hidradenitis suppurativa (3) Iron deficiency anemia Denis Griffin M.D. Feb 28, 2017 13:45
== END 2017-02-28 12:30 | disposition home or self-care (01) | DRG 909 ==
LOC: EMR 16:11 → 3E 16:13 → EDBEDREQ 16:43
PROC: 0H8BXZZ Division of Right Upper Arm Skin, External Approach (ICD-10-PCS; principal; 2017-02-27 14:00)
PROC: 0JQD0ZZ Repair Right Upper Arm Subcutaneous Tissue and Fascia, Open Approach (ICD-10-PCS; principal; 2017-02-27 14:00)
PROC: 0H85XZZ Division of Chest Skin, External Approach (ICD-10-PCS; principal; 2017-02-27 14:00)
DX: T81.30XA Disruption of wound, unspecified, initial encounter (principal); L73.2 Hidradenitis suppurativa; Y83.8 Other surgical procedures as the cause of abnormal reaction of the patient, or of later complication, without mention of misadventure at the time of the procedure; Y92.019 Unspecified place in single-family (private) house as the place of occurrence of the external cause
CPT/HCPCS: 36415; 80053; 81025; 85025; 85610; 85730; 87081; 94003; 94150; 99285; J2405